=== PATIENT | female | born 1950 | race Caucasian/White ===

== ENCOUNTER 2024-09-27 11:49 | Observation (INO) ==
--- NOTE | 2024-08-30 13:40 | PAT Medication Instructions ---
Medication Instructions Date of Service August 30, 2024 Home Medications albuterol sulfate 90 mcg/actuation aerosol inhaler 2 puff inhalation Q4H PRN Shortness Of Breath Or Wheezing atorvastatin 20 mg tablet 20 mg PO QPM fluticasone propionate 50 mcg/actuation nasal spray,suspension (Flonase Allergy Relief) 2 spray intranasal QAM PRN Nasal Congestion levothyroxine 25 mcg tablet 25 mcg PO QAM losartan 100 mg tablet 100 mg PO QAM cyanocobalamin (vitamin B-12) 500 mcg tablet 500 mcg PO QPM fexofenadine 180 mg tablet 180 mg PO QPM pantoprazole 40 mg tablet,delayed release 40 mg PO QAM buspirone 5 mg tablet 5 mg PO QAM duloxetine 30 mg capsule,delayed release 30 mg PO QAM hydroxyzine HCl 10 mg tablet 10 mg PO HS PRN Sleep MEDICATION INSTRUCTIONS: Continue as directed fluticasone propionate 50 mcg/actuation nasal spray,suspension (Flonase Allergy Relief) 2 spray intranasal QAM PRN Nasal Congestion albuterol sulfate 90 mcg/actuation aerosol inhaler 2 puff inhalation Q4H PRN Shortness Of Breath Or Wheezing (use if needed; BRING TO HOSPITAL) DO NOT take the morning of surgery losartan 100 mg tablet 100 mg PO QAM Take morning of surgery With a small sip of water, OTHERWISE NOTHING TO EAT OR DRINK AFTER MIDNIGHT: pantoprazole 40 mg tablet,delayed release 40 mg PO QAM levothyroxine 25 mcg tablet 25 mcg PO QAM buspirone 5 mg tablet 5 mg PO QAM duloxetine 30 mg capsule,delayed release 30 mg PO QAM Take evening before surgery hydroxyzine HCl 10 mg tablet 10 mg PO HS PRN Sleep fexofenadine 180 mg tablet 180 mg PO QPM atorvastatin 20 mg tablet 20 mg PO QPM cyanocobalamin (vitamin B-12) 500 mcg tablet 500 mcg PO QPM Other Notes If you have any questions please call us at [phone] or [phone] or [phone] or [phone]
--- NOTE | 2024-09-06 13:39 | Anesthesiology Consultation ---
Date of Service September 06, 2024 Assessment & Plan (1) Encounter for pre-operative examination: Chart Review Chart Review: Acceptable Risk for Surgery (pending surgeon ordered cardio and PCP clearances ) and Patient seen in Pre Admission Testing - Awaiting PCP clearance 09/22/24 ([facility]) - Awaiting cardio appt 09/15/24 ([facility]) Pt currently scheduled as 23 hours observation. If surgeon decides to change patient to Same Day Joint, patient would be acceptable risk for TKA, pending patient is motivated, has good support and surgeon's office completes Same Day Joint Program preop requirements. Per PAT appt on 09/06/24, no recent illness/disease exposures, illness related symptoms, or recent illness/disease positive tests. Will leave to surgeon's discretion if preop Covid testing needed Teaching & Discussion Pre-Anesthesia Teaching/Discussion Notes: Instructed NPO after midnight before surgery,except medications with 15 cc of water. Medication instructions provided according to the PAT guidelines. History Surgery Operation Date: 09/27/24 12:35 Proposed Procedures p Left Total Knee Arthroplasty - Ricky Berg MD Height/Weight Height: 5 ft Weight: 105.9 kg Allergies Allergy/AdvReac Type Severity Reaction Status Date / Time clarithromycin Allergy Unknown severe Verified 08/23/24 10:22 headache, rash, and toothache doxycycline Allergy Unknown rash Verified 08/23/24 10:22 Penicillins Allergy Unknown rash Verified 08/23/24 10:22 Sulfa (Sulfonamide Allergy Unknown RASH Verified 08/23/24 10:22 Antibiotics) zinc oxide Allergy Unknown rash Verified 08/23/24 10:22 WOJCIECH Inhibitors AdvReac Unknown headache Verified 08/23/24 10:22 Medications Home Medications Medication Instructions Recorded Confirmed Last Taken albuterol sulfate 90 mcg/actuation 2 puff inhalation Q4H PRN 04/21/18 08/23/24 U nknown aerosol inhaler Shortness Of Breath Or Wheezing atorvastatin 20 mg tablet 20 mg PO QPM 04/21/18 08/23/24 09/08/22 fluticasone propionate 50 2 spray intranasal QAM PRN Nasal 04/21/18 08/23/24 09/08/22 mcg/actuation nasal Congestion spray,suspension (Flonase Allergy Relief) levothyroxine 25 mcg tablet 25 mcg PO QAM 04/21/18 08/23/24 09/09/22 03:15 losartan 100 mg tablet 100 mg PO QAM 04/21/18 08/23/24 09/08/22 cyanocobalamin (vitamin B-12) 500 500 mcg PO QPM 09/03/22 08/23/24 09/08/22 mcg tablet fexofenadine 180 mg tablet 180 mg PO QPM 09/03/22 08/23/24 09/08/22 pantoprazole 40 mg tablet,delayed 40 mg PO QAM 09/03/22 08/23/24 09/09/22 03:15 release buspirone 5 mg tablet 5 mg PO QAM 08/23/24 08/23/24 Unknown duloxetine 30 mg capsule,delayed 30 mg PO QAM 08/23/24 08/23/24 Unknown release hydroxyzine HCl 10 mg tablet 10 mg PO HS PRN Sleep 08/23/24 08/23/24 Unknown Past Medical History Medical History Degenerative disc disease Depression with anxiety History of asthma rare res inh use well controlled and stable History of COVID-2019 > not hospitalized - symptoms fully resolved History of esophageal reflux well controlled and stable History of TMJ disorder clicks, and currently getting sore and causing some issues to open her mouth with pain at times --- has not locked. Hx SBO around 2020- resolved - no surgical intervention, hospitalized at [facility] Hyperlipidemia Hypertension Hypothyroidism Irregular heartbeat Occasional - patient feels possibly due to stress- had a holter monitor for 14 days in July 2024 -- unsure of findings. Osteoarthritis Sleep apnea in adult no device needed per patient Exercise / Class Metabolic Activity II 4-5 Yardwork/Stairs/Walk up hill (one flight of stairs - no chest pain or SOB ) Past Family History Family History Father Cancer Mother Breast cancer Other No family history of adverse response to anesthesia Past Surgical History Surgical History History of arthroplasty of right knee History of cataract surgery bilat History of colonoscopy History of repair of rotator cuff right History of tonsillectomy S/P appendectomy with hysterectomy surgery S/P NAHUN-BSO Past Anesthesia History No Hx of Anesthesia Complications and No Family Hx of Anesthesia Complications History of PONV No Hx of PONV and No Hx of Motion Sickness Social History Smoking Status: Never smoker Do You Dip or Chew Tobacco: No Hx Alcohol Use: Yes alcohol intake frequency: holidays/special occasions only Hx Substance Use: No substance use type: does not use Review of Systems - Fluttering/palpitation sensation- occasional- following with cardio Patient denies recent chest pain, shortness of breath, dyspnea on exertion, cough, wheezing No hx of seizures, stroke, NH. No hx of blood clots or blood transfusions Physical Exam Vital Signs VITALS BP 124/84 (manual) P 80 TEMP 97.3 SP02 97% RESP 16 Constitutional no acute distress ENMT Mouth: no TMJ clicking Thyromental Distance: < 3.5 Finger Breadths (3.0) Mallampati Class: III Missing molar Caps to side teeth Neck neck extension not limited Respiratory normal respiratory effort; no respiratory distress Auscultation: lungs clear to auscultation bilaterally; no wheezes Cardiovascular Rate/Rhythm: regular rate and regular rhythm Heart Sounds: no murmur Vessels: no carotid bruit Musculoskeletal Spine: + pain with cervical ROM (mild) Extremities: extremities normal to inspection Psychiatric Orientation: alert Lab Results Anesthesia Preop Results Results Anesthesia Widget: WBC 6.88 K/ul (4.8-10.8) 09/06/24 Hgb 13.6 g/dl (12.0-16.0) 09/06/24 Hct 40.4 % (37.0-47.0) 09/06/24 Plt 248 K/uL (130-400) 09/06/24 Na 137 mmol/L (136-145) 09/06/24 K 3.9 mmol/L (3.5-5.1) 09/06/24 Cl 105 mmol/L (98-107) 09/06/24 CO2 26 mmol/L (21-32) 09/06/24 BUN 12 mg/dl (6-23) 09/06/24 Creat 0.67 mg/dl (0.6-1.2) 09/06/24 Glucose Level 112 mg/dl (70-99(Fasting)) H 09/06/24 PT 11.0 Seconds (9.0-12.0) 09/06/24 PTT 24 Seconds (21-31) 09/06/24 INR 1.0 (0.9-1.1) 09/06/24 Urine Color Yellow 09/06/24 Urine Appearance Cloudy (Clear) A 09/06/24 Urine pH 6.5 (4.5-7.5) 09/06/24 Urine Specific [place] 1.022 (1.000-1.030) 09/06/24 Urine Protein Trace (Negative) H 09/06/24 Urine Glucose (UA) Negative (Negative) 09/06/24 Urine Ketones Negative (Negative) 09/06/24 Urine Blood 1+ (Negative) H 09/06/24 Urine Nitrite Negative (Negative) 09/06/24 Urine Bilirubin Negative (Negative) 09/06/24 Urine Urobilinogen Negative (Negative) 09/06/24 Urine Leukocyte Esterase 3+ (Negative) H 09/06/24 Urine WBC (Auto) >50 /hpf (0-5) H 09/06/24 Urine RBC (Auto) 3-5 /hpf (0-2) H 09/06/24 Urine Hyaline Casts (Auto) 0-2 /lpf (0-2) 09/06/24 Urine Epithelial Cells (Auto) 0-2 /hpf (0-2) 09/06/24 Urine Bacteria (Auto) 3+ (None Seen) H 09/06/24 Blood Type A Positive 09/06/24 Antibody Screen NEGATIVE 09/06/24 Testing Laboratory Results 09/06/24= URINE CULTURE: Klebsiella pneumoniae >100,000 CFU/ml ( Preliminary reading- surgeon's office informed of abnormal UA and prelim urine culture results- will leave to surgeon's discretion on how to proceed) Electrocardiogram Date: 09/06/24 SR with premature supraventricular complexes and with occ PVCs at 74bpm Otherwise normal EKG per cardio Chest X-Ray Date: 12/09/23 Findings: + NAD Echocardiogram Date: 07/20/24 EF: 55-59% LV Function: normal RWMA: + none Other Findings: + diastolic dysfunction (Grade I); no LVH Valvular Disease: + no significant valvular disease No evidence of pulm HTN Other Testing Event monitor 06/19/24-07/03/24= Minimum HR 49bpm, maximum HR 167bpm, average HR 78bpm. Predominant rhythm sinus rhythm. Slight P waves morphology changes noted. 58 SVT runs occurred, fastest interval lasting beats with max rate of 167bpm, longest lasting 37.4 with an average rate of 116bpm. Isolated SVEs rare, SVE couplets were rare, SVE triplets were rare. Isolated VEs were occasional, VE couplets were occasional and VE triplets were rare. Ventricular bigeminy and trigeminy were present
--- NOTE | 2024-09-25 20:36 | History & Physical Report ---
Date of Service September 25, 2024 Assessment & Plan (1) Bilateral primary osteoarthritis of knee: Plan: History of bilateral knee osteoarthritis with total knee replacement right knee in the past 2016. Patient now with progressive osteoarthritis in the left knee and wants proceed with left total knee replacement. History of Present Illness Chief Complaint: Chronic left knee pain Primary Care Provider: Janes Martínez MD 74-year-old female with chronic left knee pain failed conservative management. Patient has end-stage osteoarthritis left knee and wants proceed with knee replacement. History of right knee replacement 2016. Patient denies headaches, sweats, fevers, chills, double vision, blurred vision, , sore throat, dysphagia, chest pain, sob, wheezing, n/v/d/c, fatigue, urinary symptoms. ROS positive for chronic cough, depression with anxiety, extremity numbness, shortness of breath with activity walking up a hill or running short distance, TMJ, low back pain, acid reflux hiatal hernia. Allergies Allergy/AdvReac Type Severity Reaction Status Date / Time clarithromycin Allergy Unknown severe Verified 08/23/24 10:22 headache, rash, and toothache doxycycline Allergy Unknown rash Verified 08/23/24 10:22 Penicillins Allergy Unknown rash Verified 08/23/24 10:22 Sulfa (Sulfonamide Allergy Unknown RASH Verified 08/23/24 10:22 Antibiotics) zinc oxide Allergy Unknown rash Verified 08/23/24 10:22 WOJCIECH Inhibitors AdvReac Unknown headache Verified 08/23/24 10:22 Home Medications Medication Instructions Recorded Confirmed Type albuterol sulfate 90 mcg/actuation 2 puff inhalation Q4H PRN 04/21/18 08/23/24 History aerosol inhaler Shortness Of Breath Or Wheezing atorvastatin 20 mg tablet 20 mg PO QPM 04/21/18 08/23/24 History fluticasone propionate 50 2 spray intranasal QAM PRN Nasal 04/21/18 08/23/24 History mcg/actuation nasal Congestion spray,suspension (Flonase Allergy Relief) levothyroxine 25 mcg tablet 25 mcg PO QAM 04/21/18 08/23/24 History losartan 100 mg tablet 100 mg PO QAM 04/21/18 08/23/24 History cyanocobalamin (vitamin B-12) 500 500 mcg PO QPM 09/03/22 08/23/24 History mcg tablet fexofenadine 180 mg tablet 180 mg PO QPM 09/03/22 08/23/24 History pantoprazole 40 mg tablet,delayed 40 mg PO QAM 09/03/22 08/23/24 History release buspirone 5 mg tablet 5 mg PO QAM 08/23/24 08/23/24 History duloxetine 30 mg capsule,delayed 30 mg PO QAM 08/23/24 08/23/24 History release hydroxyzine HCl 10 mg tablet 10 mg PO HS PRN Sleep 08/23/24 08/23/24 History Past Med/Surg History Problem List (Updated 09/25/24 @ 20:36 by Ricky Berg MD) Bilateral primary osteoarthritis of knee Encounter for pre-operative examination Diarrhea GERD (gastroesophageal reflux disease) (Chronic) History of colonoscopy with polypectomy (Chronic) 06/2017 removed of adenomatous and hyperplastic polyps, repeat 5 years History of appendectomy (Chronic) Removed with NAHUN BSO Vitamin D deficiency (Chronic) History of knee replacement procedure of right knee (Chronic) 2014 Dr. Palacio History of total abdominal hysterectomy and bilateral salpingo-oophorectomy (Chronic) HTN (hypertension) (Chronic) HLD (hyperlipidemia) (Chronic) Depression with anxiety (Chronic) Hypothyroidism (Chronic) Arthritis of right knee Medical History Prediabetes Osteoarthritis Degenerative disc disease Irregular heartbeat Occasional - patient feels possibly due to stress- had a holter monitor for 14 days in July 2024 -- unsure of findings. Hypothyroidism Depression with anxiety Hx SBO around 2020- resolved - no surgical intervention, hospitalized at [facility] Hyperlipidemia Hypertension History of COVID-2019 > not hospitalized - symptoms fully resolved History of asthma rare res inh use well controlled and stable Sleep apnea in adult no device needed per patient History of esophageal reflux well controlled and stable History of TMJ disorder clicks, and currently getting sore and causing some issues to open her mouth with pain at times --- has not locked. Surgical History S/P NAHUN-BSO S/P appendectomy with hysterectomy surgery History of colonoscopy History of arthroplasty of right knee History of cataract surgery bilat History of repair of rotator cuff right History of tonsillectomy Family History Father Cancer Mother Breast cancer Other No family history of adverse response to anesthesia Social History Smoking Status: Never smoker Second Hand Exposure: No; Do You Dip or Chew Tobacco: No; Tobacco Cessation Education Requested by Patient: No Hx Alcohol Use: Yes Hx Substance Use: No Preferred Language: Syrian Communication Ability: Effective Wellness Assistant Required: No Beliefs That Will Affect Care: None marital status: Current Living Situation: Spouse Other Information That Helps Us Care for You: No Feels Safe at Home: Yes Safety Concerns: Feels Safe At This Time Assistive Devices: Glasses Review of Systems All systems reviewed & are unremarkable except as noted in HPI & below Physical Exam Constitutional: WD/WN, vitals as above Respiratory: normal respiratory effort; no respiratory distress Cardiovascular: Rate/Rhythm: regular rate and regular rhythm Musculoskeletal: Left knee pain with a varus knee mild effusion moderate swelling 0 through 125 degrees range of motion distal lower extremity neurovascular exam normal. Skin: no rashes, warm and dry Neurologic: normal touch/pain/proprioception Psychiatric: A+Ox3, euthymic affect Results & Data Diagnostic Findings Radiographs demonstrate a right total knee replacement well-fixed aligned in some valgus position on the tibia. The left knee has a varus knee with tricompartmental osteoarthritis and [id number] medial compartment.
[~2024-09-27 11:49] MED LIST: ROPIVACAINE 0.5% 5 MG/ML 30 ML VIAL ONE
--- NOTE | 2024-09-27 12:08 | History & Physical Bridge Note ---
Date of Service September 27, 2024 History & Physical Bridge Note I have examined the patient, reviewed the History & Physical and in the interval since the performance of the History & Physical I have noted the following changes of clinical significance: no changes noted
[2024-09-27] MEDS: LR 500ML BOLUS, THEN 15ML/HR IV SCH (12:30)
[2024-09-27] MEDS: ACETAMINOPHEN 500 MG TAB PO SCH ×2 (12:41→18:34)
[2024-09-27] MEDS: GABAPENTIN 300 MG CAP PO SCH (12:42)
[2024-09-27] MEDS: METOCLOPRAMIDE HCL 10 MG TABLET PO SCH (12:42)
[2024-09-27] MEDS: FAMOTIDINE 20 MG TAB PO SCH (12:42)
[2024-09-27] MEDS: dexAMETHasone**PF** 10 MG/ML VIAL IV SCH (12:42)
[2024-09-27] MEDS: LR 60ML/HR IV SCH (12:42)
[2024-09-27] MEDS: CeleBREX 200 MG CAP PO SCH (12:42)
[2024-09-27] MEDS ORDERED: fentaNYL citrate PF 100 MCG/2 ML VIAL ONE (13:09)
[2024-09-27] MEDS ORDERED: MIDAZOLAM HCL 1 MG/ML 2ML VIAL ONE ×2 (13:09→14:01)
[2024-09-27] MEDS ORDERED: ONDANSETRON INJ 2 MG/ML 2 ML VIAL IV PRN ×2 (13:11→17:52)
[2024-09-27] MEDS ORDERED: HYDROmorphone INJ 1 MG/ML SYRINGE IV PRN (13:11)
[2024-09-27] MEDS ORDERED: ATROPINE SULFATE 0.1 MG/ML 10ML SYR IV PRN (13:11)
[2024-09-27] MEDS ORDERED: ePHEDrine sulfate 50 MG/ML AMP IV PRN (13:11)
[2024-09-27] MEDS ORDERED: KETOROLAC 30 MG/ML VIAL IV PRN (13:11)
[2024-09-27] MEDS: TRANEXAMIC ACID 1,000 MG **IV Pre-op IV SCH (13:12)
[2024-09-27] MEDS ORDERED: PROPOFOL IV EMULSION 10 MG/ML 20 ML VIAL IV ONE ×3 (13:40→16:24)
[2024-09-27] MEDS: ceFAZolin 3000MG 3,000 MG/72.5 ML BAG IV SCH (13:55)
[2024-09-27] MEDS: ORTHO JOINT ANESTHETIC ONE (14:31)
[2024-09-27] MEDS ORDERED: LIDOCAINE 2% 2 ML VIAL/AMP(20MG/ML) INFIL ONE (14:59)
[2024-09-27] MEDS: ROPIV 0.5% 246mg, Ketorolac 30mg, EPINEPHrine 0.5mg in NSS INFIL SCH (15:05)
[2024-09-27] MEDS: TRANEXAMIC ACID 1,000 MG **IV Intra-op IV SCH (16:05)
[2024-09-27] MEDS ORDERED: ONDANSETRON INJ 2 MG/ML 2 ML VIAL ONE (16:29)
--- NOTE | 2024-09-27 16:53 | Operative Report ---
Post Operative Report Pre & Post Diagnosis Preoperative diagnosis: Left knee end-stage osteoarthritis, morbid obesity BMI 44.9 Postoperative diagnosis: Left knee end-stage osteoarthritis, morbid obesity BMI 44.9 Operation Date: 09/27/24 15:10 <No data on this case meets the specified criteria> I identified the patient and participated in the time-out.: Yes Procedure Left total knee arthroplasty, juana and Acticoat superficial wound VAC application, increased difficulty morbid obesity BMI 44.9 Operation Date: 09/27/24 15:10 <No data on this case meets the specified criteria> Surgeon Ricky Berg MD Tennis Desk Team Member Anand DUQUE Estimated Blood Loss 10 Findings Consistent with Post-Op Diagnosis Specimens Bone cuts Drains 2 Hemovac Anesthesia Type MAC Spinal Regional Complications none Disposition Disposition: Recovery Room Indications 74-year-old female with progressive osteoarthritis left knee failed conservative management. Radiographically she has patellofemoral and medial compartment osteoarthritis with a varus knee [id number] medial compartment. She has a right total knee arthroplasty which was performed 2014. Description of Procedure Patient taken to the operating room the size under spinal MAC regional block anesthesia. Patient was placed supine on the operating table. A pneumatic tourniquet was placed about the obese left upper thigh. The left lower ex tremity was prepped and draped in sterile fashion. Knee exam demonstrated 10 through 115 degrees range of motion no pseudolaxity medially. The leg was elevated exsanguinated with an Esmarch bandage and pneumatic tourniquet was raised to 350 millimeters of mercury. Skin incised sharply in longitudinal fashion. Subcutaneous flaps elevated. Incision was made through the medial retinaculum extending up in the mid third of the quadriceps tendon and down to the medial tibial tubercle. Intra-articular findings demonstrated primarily medial compartment and patellofemoral osteoarthritis with grade 4 medial compartment osteoarthritis [id number].. The Hibernater triathlon total knee arthroplasty system was used. To expose the knee the infrapatellar fat pad was resected. The meniscal remnants and cruciate ligaments were resected. The anterior fat pad over the femur in the area of the location of the anterior flange of the femoral component was resected. The lateral synovial bands were released. The femur was exposed. The exposure was tight with retraction of the patella with a slightly low-lying patella. An intramedullary drill hole was made into the canal. A guide annabelle was placed. Distal femoral cutting guide was adjusted to resect 5 degree valgus cut with 10 millimeters distal femur resected. The knee was extended and a subperiosteal peel lateral release was performed around the patella. Patella width was measured and width was reproduced using a freehand cut technique and a 29 mm asymmetrical patella component. The 3 drill holes were made and the trial fit satisfactorily. Attention was taken back to the femur which was exposed with retractors and the femoral sizing guide was pinned in position. The drill holes were placed in 3 of external rotation to match the epicondylar axis. The femur size was between L3 and L4 and I felt the 3 had the best medial lateral that so we the AP shifted 1.5 mm to prevent notching anteriorly and used a 3 size 4-in-1 cutting block which was placed and then the anterior posterior and chamfer cuts are made. The tibia was then subluxed. The external tibial cutting guide was adjusted to make a perpendicular cut to the long axis of the tibia below the most deficient bone loss side. Cut was adjusted for slope. A lamina millwright apprentice was used and the flexion extension gaps were balanced. Medial posterior medial releases and 1 tight band of the anterior medial MCL was pie crusted in order to balance the ligaments. All posterior osteophytes removed. All meniscal remnants were resected. The tibia exposed and the trial tibial component size 3 was externally rotated in line with the tibial tubercle and pinned in position. The punch for stem was used. The notch cutting device was centered appropriately and the femoral notch cut was made. The femoral trial was inserted. Trial tibial inserts were placed and size 13 posterior stabilized gave balanced ligaments through flexion and extension. Patella tracking was assessed. The patella tracked centrally. The trial components were then removed and the orthomix anesthetic cocktail was injected per protocol. The knee was then copiously irrigated with pulsatile lavage saline solution. Final components were then cemented with Refobacin cement. After the cement cured a Betadine soak was performed for 3 minutes and then knee was irrigated out. Final components were Emilio triathlon size 3 left posterior stabilized femoral component with a 3 universal tibial baseplate and 3 x 13 mm X.3 polyethylene tibial bearing insert and a X.3 polyethylene asymmetrical 29 x 9 mm all polyethylene patella component.. After the cement cured further pulsatile lavage irrigation was then performed with Xperience and 2 Hemovac drains were brought out laterally. The quadriceps tendon and medial retinaculum were closed with #2 FiberWire [id number] sutures along the medial retinaculum medial side of the patella and distal quadriceps tendon and an additional figure-of- eight suture at the apex of the quadriceps tendon split proximally and an additional [id number] suture at the level of the tibial polyethylene in the patella tendon. a 0 running locking STRATAFIX suture was placed starting at the proximal split in the quadriceps tendon extending down to the inferior pole the patella and then below that level [id number] #1 Vicryl sutures were utilized to repair the medial retinaculum to the patella tendon. The knee was taken through full range of motion and the repair was secure. Knee range of motion was 0 through 125 degrees. The subcutaneous tissues were closed with 2-0 Vicryl sutures. Skin was closed with surgical charan. Juana and Acticoat superficial wound VAC was applied. The patient tolerated the procedure well. There was increased level difficulty due to her obesity and this added 30 minutes to the surgical procedure time. Anand DUQUE was my physician assistant director of nursing who participated as produce assistant and was involved in all aspects of the procedure including patient positioning prepping and draping,leg positioning ,soft tissue retraction and instrument management and participated in the closing and placement of superficial wound VAC and will participate in postoperative care of the patient. The patient tolerated the procedure well. I attest to the content of the Intraoperative Record and any orders documented therein. Any exceptions are noted below.
--- NOTE | 2024-09-27 17:12 | Anesthesiology Progress Note ---
Date of Service September 27, 2024 Anesthesia Post Procedure Vital Signs Vital Signs: Temp Pulse Resp BP BP Pulse Ox O2 Del Method 09/27/24 17:05 81 17 129/67 94 Room Air 09/27/24 16:55 79 18 123/63 94 Room Air 09/27/24 16:45 36.6 C 83 18 134/58 L 95 Room Air 09/27/24 12:20 37 C 82 20 160/88 H 97 Room Air Pain Intensity Left Knee: Pain Intensity: 0 Transfer of Care Handoff Completed per policy Notes Mental Status: alert / awake / arousable Patient Amnestic to Procedure: Yes Nausea / Vomiting: adequately controlled Pain: adequately controlled Airway Patency, RR, SpO2: stable & adequate BP & HR: stable & adequate Hydration State: stable & adequate Neuraxial Anesthesia: was administered and sensory block is resolving Anesthetic Complications: no major complications apparent and Pt Satisfied with anesthetic care
--- NOTE | 2024-09-27 17:12 | XRay Report ---
Clinical History: Postoperative examination 2 views of the left knee are submitted for review. Findings: No fracture is seen. There is a left knee total arthroplasty in expected position. There is no definite sign of infection or loosening. No other osseous abnormality is identified. There are surgical skin charan anteriorly. Surgical drains are present Impression: Left knee replacement Electronically signed by Alvaro Ambrose 09-27-2024 5:12 PM
[2024-09-27] MEDS ORDERED: METOCLOPRAMIDE HCL INJ 5 MG/ML 2 ML VIAL IV PRN (17:52)
[2024-09-27] MEDS ORDERED: MAGNESIUM HYDROXIDE SUSP 30 ML UDC PO PRN (17:52)
[2024-09-27] MEDS ORDERED: ALUMINUM/MAGNESIUM SUSP 30 ML UDC PO PRN (17:52)
[2024-09-27] MEDS ORDERED: HYDROmorphone INJ 0.5 MG/0.5 ML SYR IV PRN (17:52)
[2024-09-27] MEDS ORDERED: hydrOXYzine HCl 10 MG TAB PO PRN (17:52)
[2024-09-27] MEDS ORDERED: diphenhydrAMINE Capsule 25 MG CAP PO PRN (17:52)
[2024-09-27] MEDS ORDERED: bisacodyL 10 MG SUPP PR PRN (17:52)
[2024-09-27] MEDS ORDERED: ALBUTEROL HFA 8 GM INHALER INH PRN (17:52)
[2024-09-27] MEDS ORDERED: NALOXONE HCL 0.4 MG/1 ML VIAL/CARP IV PRN (17:52)
[2024-09-27] MEDS ORDERED: FLUTICASONE PROPIONATE NA SPR 16 GM BTL PRN (17:52)
[2024-09-27] MEDS: VANCOMYCIN HCL 1,500 MG in SODIUM CHLORIDE 0.9% 500 ML IV SCH (18:25)
--- OUTSIDE RECORDS SUMMARY | 2024-09-27 18:26 | External Medical Summary | Summary of Care ---
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 Role Phone Jose Puente MD Primary Care Provide r Reason for Visit * Reason Comments Consultation * Evaluate & Treat - Unlimited Visits (Within 30 days (routine)) - Pending Review Specialty Diagnoses / Procedures Referred By Contact Referred To Contact Cardiac Electrophysiology / Cardiology Diagnoses SVT (supraventricular tachycardia) (HCC) Jose Puente MD [address] [place] [address] [place] [address] Phone: tel:[phone] fax:[phone] Referral ID Status Reason Start Date Expiration Date Visits Requested Visits Authorized [id number] Pending Review Specialty Services Required 07/11/[phone] Encounter Details Date Type Department Care Team (Late st Contact Info) Description 09/15/2024 11:45 AM EST Office Visit Cardiology, [facility] [address] [facility] [place] [id number] Jessica Cordon, [address] [place] [address] [place] [id number] PAT (paroxysmal atrial tachycardia) (HCC)*; HTN, goal below 150/90; Hyperlipidemia with target LDL less than 70 Allergies Active Allergy Reactions Criticality Noted Date Comments Alejandro Inhibitors 12/21/2005 cough Clarithromycin 07/12/2000 Clarithromycin 02/08/2008 Headache,facial pain Doxycycline Hyclate 10/02/2009 hughes Penicillins 07/12/2000 Hives Sulfa Antibiotics 07/12/2000 rash Zinc Oxide 07/12/2000 documented as of this encounter (statuses as of 09/15/2024) Medications fexofenadine (NATAN) 60 MG Tablet Take 1 Tablet by mouth in the morning. Active B-12 1000 MCG Oral Capsule Take 1 Capsule by mouth in the morning. Active Fluticasone Propionate 50 MCG/ACT Nasal Suspension (Flonase)Indicatio ns:Other allergic rhinitis Administer 2 Sprays into each nostril in the morning. 48 g 1 3 Active Albuterol Sulfate HFA 108 (90 Base) MCG/ACT Inhalation Aerosol SolutionIndication s:Exacerbation of asthma, unspecified asthma severity, unspecified whether persistent Inhale 2 Puffs by mouth every 4 hours as needed for Wheezing. 18 g 5 4 Active Multivitamin Adult Oral Tablet Take by mouth. 4 Active Losartan Potassium 100 MG Oral Tablet (Cozaar)Indication s:Secondary hypertension with goal blood pressure less than 140/90 TAKE 1 TABLET EVERY MORNING 90 Tablet 3 4 Active Pantoprazole Sodium 40 MG Oral Tablet Delayed Release (Protonix)Indicati ons:Gastroesophage al reflux disease with esophagitis TAKE ONE TABLET BY MOUTH EVERY MORNING 30 MINUTES BEFORE BREAKFAST, DO not CRUSH, split OR chew 90 Tablet 1 4 Active Atorvastatin Calcium 20 MG Oral Tablet (Lipitor) TAKE 1 TABLET ONCE DAILY 90 Tablet 1 4 Active hydrOXYzine HCl 10 MG Oral Tablet (Atarax)Indication s:Insomnia, unspecified type,Depression with anxiety Take 1 Tablet by mouth at bedtime as needed for Other (insomnia). 30 Tablet 2 4 Active busPIRone HCl 5 MG Oral Tablet (Buspar)Indication s:Depression with anxiety TAKE ONE TABLET BY MOUTH EVERY MORNING 90 Tablet 4 Active Levothyroxine Sodium 25 MCG Oral Tablet (Levoxyl)Indicatio ns:Idiopathic hypothyroidism TAKE 1 TABLET DAILY AT LEAST 30 MINUTES PRIOR TO BREAKFAST OR OTHER MEDICATIONS. 90 Tablet 1 5 Active DULoxetine HCl 30 MG Oral Capsule Delayed Release Particles (Cymbalta)Indicati ons:Arthralgia, unspecified joint,Depression with anxiety Take 1 Capsule by mouth in the morning. Do not cut, crush or chew. 90 Capsule 1 5 Active documented as of this encounter (statuses as of 09/15/2024) Active Problems Problem Noted Date Diagnosed Date BMI 40.0-44.9, adult 09/15/2023 History of 2019 novel coronavirus disease (COVID -19) 07/23/2020 Body mass index (BMI) of 45.0 to 49.9 in adult 0 10/17/2018 Overview: Per Obesity protocol #1 - - Gastroesophageal reflux disease with esophagitis 10/03/2018 B12 deficiency 09/20/2018 Overview (09/20/2018): 09/27 start PO Morbid obesity due to excess calories 01/06/2017 Well adult exam 05/29/2016 Overview (11/12/2021): Need DANYA eval. w/early dementia 2021. 06/10/17 [facility] COlonoscopy 2 polyps-tubular adenoma. Christianne 5y Summer 2015 fatigue started synthroid 03/2016 [facility] Depression with anxiety 03/06/2015 Dyslipidemia, goal LDL below 130 07/18/2012 Left knee DJD 01/01/2012 HTN, goal below 140/90 06/17/2009 Other allergic rhinitis 11/13/2003 Overview (06/01/2017): ICD-10 update of inactive term documented as of this encounter (statuses as of 09/15/2024) Resolved Problems Problem Noted Date Diagnosed Date Resolved Date Prediabetes 11/12/2021 09/23/2023 Body mass index (BMI) of 40. 0 to 44.9 in adult 09/08/2019 11/07/2020 Encounter for examination fo r normal comparison and control in clinical research program 12/05/2018 03/11/2020 Overview (11/25/2020): DO NOT DELETE [facility] DETECT Study: Project # [id number], [employer]vered[employer] Sewer: Akash Morris, PhD. SUMMARY: Goal: Establish test characteristics (sensitivity, specificity, PPV, NPV) of a circulating tumor DNA (ctDNA)-based test for cancer. Hypothesis: Circulating tumor DNA (ctDNA) and elevated protein biomarkers (together, the marker panel) can be detected in asymptomatic individuals with early cancer. Specific Aim 1: Determine the prevalence of a positive marker panel test in a prospective clinical cohort of 10,000 asymptomatic women ages 65 to 75 years. Specific Aim 2: Determine the sensitivity, specificity, positive predictive value (PPV) and negative predictive value (NPV) of a marker panel test to identify histologically proven cancers that develop within 5-years of the marker panel evaluation. CONTACTS: During normal business hours, contact study staff at ; after hours Overedge Sewer via the [facility] automatic furnace operator . Please contact study team before resolving/deleting from patients problem list. Study phone number: [phone]. Diagnosis changed due to Research Module. Go to Snapshot for study details. Encounter for examination fo r normal comparison and control in clinical research program 12/05/2018 04/09/2022 Overview (11/25/2020): DO NOT DELETE - [facility] Study: Project # [id number], Overedge Sewer: Kapil Holcomb, MS, MPH. SUMMARY: Goal: Establish test characteristics (sensitivity, specificity, PPV, NPV) of a circulating tumor DNA (ctDNA)-based test for cancer. - Hypothesis: Circulating tumor DNA (ctDNA) and elevated protein biomarkers (together, the marker panel) can be detected in asymptomatic individuals with early cancer. - Specific Aim 1: Determine the prevalence of a positive marker panel test in a prospective clinical cohort of 10,000 asymptomatic women ages 65 to 75 years. - Specific Aim 2: Determine the sensitivity, specificity, positive predictive value (PPV) and negative predictive value (NPV) of a marker panel test to identify histologically proven cancers that develop within 5-years of the marker panel evaluation. - CONTACTS: During normal business hours, contact study staff at ; after hours [employer]veredge Sewer via the [facility] automatic furnace operator . - Please contact study team before resolving/deleting from patients problem list. Study phone number: [phone]. Diagnosis changed due to Research Module. Go to Snapshot for study details. Body mass index (BMI) of 40. 0 to 44.9 in adult 05/16/2018 10/18/2018 Overview: Per Obesity protocol #1 - Idiopathic hypothyroidism 04/15/2018 Body mass index (BMI) of 45. 0 to 49.9 in adult 05/10/2017 05/23/2018 Overview: Per Obesity protocol #1 Malaise and fatigue 03/24/2016 02/02/20 17 Left foot pain 03/24/2016 11/30/2016 Preop examination 09/09/2015 03/24/2016 Chronic rhinitis 08/07/2015 03/24/2016 Cough 07/15/2015 03/24/2016 Sciatica 06/10/2015 03/24/2016 Leg cramping 05/08/2015 03/24/2016 Pain in left shoulder 05/08/20152015 Malaise and fatigue 04/01/2015 08/22/19 19 Panic attacks 03/06/2015 10/03/2018 Bronchitis, complicated 12/24/201403/10 Acute sinusitis 09/24/2014 04/01/2015 Wheeze 09/24/2014 03/06/2015 Tear meniscus knee 09/11/2014 5 Internal derangement of knee 07/21/2014 04/01/2015 Tick bite 04/03/2014 04/01/2015 Vitamin D deficiency 03/17/2012 019 Asthma, moderate persistent 09/22/2011 01/16/2014 Obesity, morbid (more than 1 00 lbs over ideal weight or BMI > 40) 11/05/2009 02/03/2011 Overview (10/28/2015): Per Obesity Taxonomy ICD-10 update of inactive term Dyslipidemia, goal to be determined 07/16/2009 02/03/2011 Overview (07/16/2009): Per Lipid Taxonomy. Dyslipidemia, goal LDL below 160 06/17/2009 07/16/2009 Overview (07/16/2009): Per Lipid Taxonomy. HTN, goal to be determined 03/13/2009 1 08/17/2008 FAMILY HX-BREAST MALIG 05/29/200610/03 Dyslipidemia, goal to be determined 07/18/2004 06/17/2009 Other chronic sinusitis 11/13/200301/07 CYSTITIS, interstitial 06/07/200201/16 Major depressive disorder 06/07/2002 Overview (06/01/2017): ICD-10 update of inactive term Esophageal reflux 06/07/2002 03/06/2015 FAM HX-DIABETES MELLITUS 06/07/2002 OBESITY, UNSPECIFIED 010 Overview (11/05/2009): Per Obesity Taxonomy documented as of this encounter (statuses as of 09/15/2024) Immunizations Name Administration Dates Next Due COVID-19 mRNA, LNP-s, No Pre serve, 2-Dose Series (Moderna) 10/19/2020,09/08/2020 COVID-19, MRNA-LNP, PF, 30 M CG/0.3 mL, 12 YRS AND ABOVE, IM (PFIZER-Comirnaty) 05/04/2024,06/08/2023 COVID-19, mRNA, LNP-s, PF, B ooster, 100mcg/0.5mg (Moderna) 11/05/2021,06/17/2021 H1N1 2009 Influenza, IM 09/02/2009 Pneumococcal Conjugate Vacc, 13 Valent (Prevnar) 06/20/2018 Pneumococcal Polysaccharide PPV23 (Pneumovax) 09/08/2019,03/17/2012 Season Influenza, Quad, PF, Adjuvanted, 65+ Yrs, IM (FLUAD) 06/08/2023,04/20/2020 Seasonal Influenza Vac., MDV , IM, 0.5 mL (Fluzone) 04/27/2014,05/04/2013,04/19/2012,05/16,06/03/2010,04/24/2009,06/14/2008 ,06/10/2006 Seasonal Influenza, High Dos e, Trivalent, PF, IM (Fluzone HD) 04/27/2024 Seasonal Influenza, PF, 6 M & above, IM , (FluLaval or Fluzone) 05/02/2018,05/18/2017 Seasonal Influenza, Quadriva lent Hd (Fluzone Hd) 04/14/2022,05/15/2021 Seasonal Influenza, Quadriva lent, No Preserve, IM 06/05/2016,05/08/2015 Seasonal Influenza, Trivalen t, Adjuvanted, 65+ YRS, PF, (Fluad) 05/08/2019 TDAP (age 10 and older)(Boostrix) 11/07/2020 TDAP, Age 7 and older, IM (Adacel) 06/17/2009 Varicella Zoster Vaccine (Adult) 10/03/2012 Zoster Vaccine Recombinant (Shingrix) 02/20/2020 ,09/08/2019 documented as of this encounter Social History Tobacco Use Types Packs/Day Years Used Date Smoking Tobacco: Never Smokeless Tobacco: Never Alcohol Use Standard Drinks/Week Comments Yes 0 (1 standard drink = 0.6 oz pur e alcohol) on occasion PHQ-2 Answer Date Recorded PHQ Adult Total Score 9 06/19/2024 Hunger Vital Sign Answer Date Recorded Worried About Running Out of Food in the Last Ye ar Never true 06/07/2019 Ran Out of Food in the Last Year Never true 06/07/2019 Comments No Sex and Gender Information Value Date Recorded Sex Assigned at Female 06/21/2019 9:52 AM EST Legal Sex Female 5:27 AM EST Gender Identity Female 06/21/2019 9:52 AM EST Sexual Orientation Straight 06/20/2023 7: 15 PM EST 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 Chief Complaint Patient presents with Consultation Pt referred to EP due to abnormal zio patch Referring Provider: Dr. Garcia Cardiac Problems: PAT brief on 06/2024 longest 30 seconds HTN HLD Morbid obesity HPI: Pt reports palpitations more when she is stressed She cares for her who has dementia Over the past month she maybe had an episode every 2 weeks with a duration of a minute or so; no associated symptoms. She typically sits down and calms herself down and then feels better She works at a food [employer] and takes care of the household choirs and her grand- children and great-grand children and siblings all live nearby She is thinking about getting her other TKR 09/27/2024 with [facility] but then during the work up she was found to have a tooth infection-and is due to see the dentist next week; and then had UTI and was treated for this PMH: Patient Active Problem List Diagnosis Other allergic rhinitis HTN, goal below 140/90 Left knee DJD Dyslipidemia, goal LDL below 130 Depression with anxiety Well adult exam Morbid obesity due to excess calories (HCC) B12 deficiency Gastroesophageal reflux disease with esophagitis Body mass index (BMI) of 45.0 to 49.9 in adult ([facility]) History of 2019 novel coronavirus disease (COVID-19) BMI 40.0-44.9, adult ([facility]) Current Outpatient Medications Medication Sig Dispense Refill fexofenadine (NATAN) 60 MG Tablet Take 1 Tablet by mouth in the morning. B-12 1000 MCG Oral Capsule Take 1 Capsule by mouth in the morning. Fluticasone Propionate 50 MCG/ACT Nasal Suspension (Flonase) Administer 2 Sprays into each nostril in the morning. 48 g 1 Albuterol Sulfate HFA 108 (90 Base) MCG/ACT Inhalation Aerosol Solution Inhale 2 Puffs by mouth every 4 hours as needed for Wheezing. 18 g 5 Multivitamin Adult Oral Tablet Take by mouth. Losartan Potassium 100 MG Oral Tablet (Cozaar) TAKE 1 TABLET EVERY MORNING 90 Tablet 3 Pantoprazole Sodium 40 MG Oral Tablet Delayed Release (Protonix) TAKE ONE TABLET BY MOUTH EVERY MORNING 30 MINUTES BEFORE BREAKFAST, DO not CRUSH, split OR chew 90 Tablet 1 Atorvastatin Calcium 20 MG Oral Tablet (Lipitor) TAKE 1 TABLET ONCE DAILY 90 Tablet 1 hydrOXYzine HCl 10 MG Oral Tablet (Atarax) Take 1 Tablet by mouth at bedtime as needed for Other (insomnia). 30 Tablet 2 busPIRone HCl 5 MG Oral Tablet (Buspar) TAKE ONE TABLET BY MOUTH EVERY MORNING 90 Tablet 0 Levothyroxine Sodium 25 MCG Oral Tablet (Levoxyl) TAKE 1 TABLET DAILY AT LEAST 30 MINUTES PRIOR TO BREAKFAST OR OTHER MEDICATIONS. 90 Tablet 1 DULoxetine HCl 30 MG Oral Capsule Delayed Release Particles (Cymbalta) Take 1 Capsule by mouth in the morning. Do not cut, crush or chew. 90 Capsule 1 No current facility-administered medications for this visit. Past Medical History: Diagnosis Date Allergic rhinitis due to other allergen Body mass index (BMI) of 45.0 to 49.9 in adult (HCC) 10/17/2018 Per Obesity protocol #1 - - Chronic sinusitis COVID-19 07/15/2020 Depressive disorder, not elsewhere classified Dyslipidemia, goal to be determined Esophageal reflux Family history of diabetes mellitus FAMILY HX-BREAST MALIG 05/29/2006 History of 2019 novel coronavirus disease (COVID-19) 07/23/2020 HTN, goal below 140/90 06/17/2009 Idiopathic hypothyroidism 04/15/2018 INTERSTITIAL CYSTITIS Obesity, BMI not known Other specified adjustment reaction Vitamin D deficiency 03/17/2012 Past Surgical History: Procedure Laterality Date ARTHROPLASTY KNEE TOTAL Right 09/2014 Dr Palacio COLONOSCOPY, DIAGNOSTIC (RECTUM) 12/21/2006 repeat 5 years COLONOSCOPY, DIAGNOSTIC (RECTUM) 04/18/2012 COLONOSCOPY FLEXIBLE PROXIMAL DIAGNOSTIC [facility] COLONOSCOPY, DIAGNOSTIC (RECTUM) 06/10/2017 adenomatous & hyperplastic polyps, repeat 5 yrs/[facility] COLONOSCOPY, DIAGNOSTIC (RECTUM) 09/09/2022 serrated adenomatous polyp, repeat 5 yrs / [facility] CYSTOSCOPY 2002 Dr Reilly MISCELLANEOUS ORDER appendectomy 1988 REMOVE CATARACT, INSERT LENS PROSTH Right 10/11/2018 right EXTRACAPSULAR CATARACT REMOVAL WITH INTRAOCULAR LENS performed by Mauro Conner MD at [facility] REMOVE CATARACT, INSERT LENS PROSTH Left 10/18/2018 left EXTRACAPSULAR CATARACT REMOVAL WITH INTRAOCULAR LENS performed by Mauro Conner MD at [facility] TOTAL ABD HYSTERECTOMY W/WO REMOVAL OF TUBE(S) 1988/heavy bleeding Review of patient's allergies indicates: Allergen Reactions Alejandro Inhibitors cough Biaxin [Clarithromycin] Clarithromycin Headache,facial pain Doxycycline Hyclate hughes Penicillins Hives Sulfa Antibiotics rash Zinc Oxide Family History Problem Relation Name Age of Onset Cancer Mother breast CA- Breast Cancer Mother Diabetes Grandmother (Paternal) Heart Disorder Father Diabetes Father Cancer Father unsure type- No Past Hx Sister No Past Hx Brother No Past Hx Son 3 (adopted-husbands) No Past Hx Daughter Rosario Breast Cancer Aunt (Maternal) Family Status Relation Status Mo (Not Specified) PGMA (Not Specified) Fa (Not Specified) Sis (Not Specified) Bro (Not Specified) Son (Not Specified) Marilyn (Not Specified) MAUNT (Not Specified) Social History Socioeconomic History Marital status: Spouse name: Not on file Number of children: Not on file Years of education: Not on file Highest education level: Not on file Occupational History 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 Tobacco Use Smoking status: Never Smokeless tobacco: Never Substance and Sexual Activity Alcohol use: Yes Comment: on occasion Drug use: No Sexual activity: Yes Partners: Male Comment: , noDV 3 sons (husbands) + daughter + 12 grandkids Other Topics Concern Not on file Social History Narrative Not on file Social Needs Financial Resource Strain: Not on file Food Insecurity: No Food Insecurity (06/07/2019) Hunger Vital Sign Worried About Running Out of Food in the Last Year: Never true Ran Out of Food in the Last Year: Never true Transportation Needs: Not on file Social Connections: Not on file Housing Stability: Not on file Review of Systems Constitutional: Negative for activity change, chills, fatigue, fever and unexpected weight change. HENT: Negative for postnasal drip, rhinorrhea and sinus pressure. Eyes: Negative for visual disturbance. Respiratory: Negative for shortness of breath. Cardiovascular: Positive for palpitations. Negative for chest pain and leg swelling. Gastrointestinal: Negative for blood in stool, constipation, diarrhea, nausea and vomiting. Genitourinary: Negative for dysuria and hematuria. Musculoskeletal: Negative for gait problem. Skin: Negative for rash. Neurological: Negative for dizziness, syncope and light-headedness. Objective BP 136/86 | Pulse 68 | Resp 14 | Wt 105.7 kg (233 lb) | BMI 45.50 kg/m | BSA 2.12 m Physical Exam Vitals and nursing note reviewed. Constitutional: General: She is awake. Appearance: Normal appearance. She is well-developed. HENT: Head: Normocephalic and atraumatic. Eyes: General: No scleral icterus. Extraocular Movements: Extraocular movements intact. Neck: Vascular: Normal carotid pulses. No carotid bruit or JVD. Cardiovascular: Rate and Rhythm: Normal rate and regular rhythm. Pulses: Carotid pulses are 2+ on the right side and 2+ on the left side. Radial pulses are 2+ on the right side and 2+ on the left side. Posterior tibial pulses are 2+ on the right side and 2+ on the left side. Heart sounds: S1 normal and S2 normal. No murmur heard. Pulmonary: Effort: Pulmonary effort is normal. Breath sounds: Normal breath sounds. No decreased breath sounds, wheezing, rhonchi or rales. Abdominal: Palpations: Abdomen is soft. Musculoskeletal: Cervical back: Neck supple. Right lower leg: No edema. Left lower leg: No edema. Skin: General: Skin is warm and dry. Neurological: General: No focal deficit present. Mental Status: She is alert and oriented to person, place, and time. Psychiatric: Attention and Perception: Attention normal. Mood and Affect: Mood normal. Speech: Speech normal. Behavior: Behavior normal. Behavior is cooperative. Thought Content: Thought content normal. Cognition and Memory: Cognition normal. Judgment: Judgment normal. RESULTS: ECGS: 09/06/2024: SR 75bpm APC 09/09/2015: SB 57bpm 10/05/2011: SR 60bpm 06/30/2010: SB 58bpm Zio Patch: 06/19/2024: REASON FOR STUDY: palpitation CONCLUSIONS: Duration: 13 days, 20 hours after artifact removed. Patient had a min HR of 49 bpm, max HR of 167 bpm, and avg HR of 78 bpm. Predominant underlying rhythm was Sinus Rhythm. Slight P wave morphology changes were noted. 58 Supraventricular Tachycardia runs occurred, the run with the fastest interval lasting 5 beats with a max rate of 167 bpm, the longest lasting 37.4 secs with an avg rate of 116 bpm. Isolated SVEs were rare (<1.0%), SVE Couplets were rare (<1.0%), and SVE Triplets were rare (<1.0%). Isolated VEs were occasional (3.9%, 75700), VE Couplets were occasional (1.1%, 8126), and VE Triplets were rare (<1.0%, 75). Ventricular Bigeminy and Trigeminy were present. Symptomatic events correlate with sensed ventricular ectopy and normal sinus rhythm. Echocardiogram: 07/20/2024: The left ventricular cavity size is normal. The LV wall thickness is normal. The left ventricular wall motion is normal. The qualitative LV ejection fraction is 55-59% (normal). The left ventricular diastolic function is mildly abnormal (grade I). There is no significant valvular disease There is no evidence of pulmonary hypertension. Lab Work Reviewed: Component Latest Ref Rng 09/15/2023 06/19/2024 BUN 6 - 20 mg/dL 13 12 CREATININE 0.5 - 1.0 mg/dL 0.6 0.6 EGFR >=60 mL/min >90 >90 SODIUM 135 - 146 mmol/L 138 139 POTASSIUM 3.5 - 5.1 mmol/L 4.1 4.4 CHLORIDE 98 - 107 mmol/L 102 101 CO2 22 - 32 mmol/L 24 24 ANION GAP 7 - 15 mmol/L 12 14 GLUCOSE 70 - 120 mg/dL 95 91 Albumin 3.8 - 5.0 g/dL 4.4 4.2 AST 10 - 35 U/L 21 25 Alkaline Phosphatase 35 - 130 U/L 95 105 Bilirubin, Total <=1.2 mg/dL 0.3 0.5 CALCIUM 8.4 - 10.2 mg/dL 9.0 9.3 Protein 6.0 - 8.3 g/dL 6.8 6.8 ALT 10 - 35 U/L 19 23 WBC 4.00 - 10.80 K/uL 7.81 Neutrophils % 40.0 - 75.0 % 56.1 Lymphocytes % 18.0 - 42.0 % 33.0 Monocytes % 1.0 - 11.0 % 7.9 Eosinophils % 0.0 - 6.0 % 1.7 Basophils % 0.0 - 2.0 % 1.0 Immature Granulocytes % 0.0 - 2.0 % 0.3 Absolute Neutrophils 1.80 - 7.70 K/uL 4.38 Absolute Lymphocytes 1.00 - 4.80 K/ul 2.58 Absolute Monocytes 0.00 - 1.10 K/uL 0.62 Absolute Eosinophils 0.00 - 0.70 K/uL 0.13 Absolute Basophils 0.00 - 0.20 K/uL 0.08 Absolute Immature Granulocytes 0.00 - 0.20 K/uL 0.02 WBC 4.00 - 10.80 K/uL 7.81 RBC 3.85 - 5.15 M/uL 4.51 HGB 12.0 - 15.3 g/dL 13.7 HCT 36.0 - 45.2 % 43.5 MCV 81.5 - 97.5 fL 96.5 MCH 27.0 - 34.0 pg 30.4 MCHC 32.0 - 36.0 g/dL 31.5 RDW 11.5 - 15.5 % 13.0 PLT 140 - 400 K/uL 262 MPV 6.6 - 11.1 fL 11.6 nRBCs <=0 /100 WBCs 0 Triglycerides <=174 mg/dL 86 Cholesterol <200 mg/dL 183 HDL Cholesterol >49 mg/dL 61 Non-HDL Cholesterol <=159 mg/dL 122 LDL Cholesterol <=129 mg/dL 105 Hemoglobin A1C 4.0 - 5.6 % 5.6 5.7 (H) Estimated Average Glucose <126 mg/dL 114 117 TSH 0.27 - 4.20 uIU/mL 2.75 1.86 ASSESSMENT: PAT brief on 06/2024 longest 30 seconds HTN HLD Morbid obesity Vitamin B12 deficiency GERD Depression 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 in upcoming few weeks PLAN: -I reviewed the cardiac conduction system and the EGMs from the zio patch with the patient and how it relates to her condition of PAT -Reassured the patient; I would not recommend any AVN blockers, anti-arrhythmic or procedures -Pt is at an acceptable moderate cardiovascular risk for her upcoming orthopedic procedure; no further cardiac testing necessary -Continue lipitor, losartan -EP f/u PRN Jessica Cordon DO documented in this encounter Nursing Notes * Anabel Espinosa LPN - 09/15/2024 11:47 AM EST Examination Room: 16 Name: Lashae Navas Date of : 1950 Reason for Visit: New pt Problems/Concerns: SVT on monitor - palpitations Interim Hosp(s): denies Chest Pain/SOB: denies MyChart Discussed: ALREADY ACTIVE Patient was instructed to not get up on the exam table until directed and assisted by their provider; patient is to remain seated in the chair/ wheelchair/ exam table for fall prevention and safety reasons. Patient is aware staff will assist stepping down off exam table with personnel. documented in this encounter Plan of Treatment Upcoming Encounters Date Type Department Care Team (Late st Contact Info) Description 09/22/2024 8:00 AM EST Office Visit [address] [place] [phone] Jose Puente MD [address] [place] [address] [place] [address] 12/18/2024 10:20 AM EDT Office [address] [address] Sharron Berumen CRNP [address] [place] [address] [place] [address] 06/19/2025 11:00 AM EST Office Visit [address] [place] [address] Jose Puente MD [address] [place] [address] [place] [address] 07/12/2025 10:00 AM EST Imaging Radiology [address] [place] [address] Scheduled Procedures Name Priority Associated Diagnoses Date/Ti me COLONOSCOPY FLEXIBLE PROXIMAL DIAGNOSTIC Recall History of colon polyps Scheduled Referrals Name Type Priority Associated Diagnoses Order Schedule ELECTROPHYSIOLOGY REFERRAL OP Referral Within 30 days (routine) SVT (supraventricular tachycardia) (HCC) Ordered: 07/11/2024 Health Maintenance Due Date Last Done Comments Cologuard 1997 Sigmoidoscopy 1997 Fecal Occult Blood Test 07/12/2001 07/12/2000 Adult Wellness Visit 06/21/2020 06/21/2019 DXA Scan 09/27/2024 09/27/2017 Depression Monitoring 06/19/2025 06/19/2024 TSH 06/19/2025 06/19/2024, 02/2024, 12/23/2022, Additional history exists Mammogram 07/05/2025 07/05/2024, 01/2023, 06/01/2022, Additional history exists GFR 09/06/2025 09/06/2024, 06/09, 09/15/2023, Additional history exists Albumin/Creatinine Ratio 12/23/2025 023, 04/10/2015, 04/04/2014 Colonoscopy 09/09/2027 09/09/2022, 09/2016, 04/18/2012, Additional history exists Colorectal Cancer Screening 09/09/2027 Lipid Panel 09/15/2028 09/15/2023, 12/07, 11/07/2021, Additional history exists DTap/Tdap Vaccines (3 - Td or Tdap) 11/07/2030 11/07/2020, 06/17/2009 Pneumococcal Vaccine: 50+ Years Completed 09/08/2019, 06/20/2018, 03/17/2012 Zoster Vaccines Completed 02/20/2020, 08/11, 10/03/2012 RETIRED - COLONOSCOPY-EVERY 5 YRS AGES 18-100 Discontinued 09/09/2022, 06/10/2017, 04/18/2012, Additional history exists Influenza Vaccine (FLU shot) Completed 04/27/2024, 06/08/2023, 04/14/2022, Additional history exists COVID-19 Vaccine Completed 05/04/2024, , 11/05/2021, Additional history exists HPV (Gardasil) Vaccine Aged Out No lo nger eligible based on patient's age to complete this topic Hepatitis B Vaccine Aged Out No longe r eligible based on patient's age to complete this topic MENINGOCOCCAL (MENACTRA/MENVEO) Aged Out No longer eligible based on patient's age to complete this topic documented as of this encounter Medical Devices Implanted Type Area Bullet Lubricating Machine Operator Device Identifier Shelf Expiration Date Model / Serial / Lot Lens Tecnis Toric 15.5d Zct30 - [id number] - [id number] Implanted:Qty: 1 on 10/11/2018 by Mauro Conner MD at OR [facility] Right: Eye [employer] 03/17/2022 [id number] / [id number] / Lens Tecnis Toric 13.5d Zct4 - [id number] - [id number] Implanted:Qty: 1 on 10/18/2018 by Mauro Conner MD at OR [facility] Left: Eye [employer] 12/15/2021 [id number] / [id number] / documented as of this encounter Visit Diagnoses Diagnosis PAT (paroxysmal atrial tachycardia) (HCC)- Primary Paroxysmal supraventricular tachycardia HTN, goal below 150/90 Hyperlipidemia with target LDL less than 70 Other and unspecified hyperlipidemia Screening mammogram for breast cancer documented in this encounter Care Teams Stud Dairy Cattle Farmer Relationship Specialty Start Date End Date Jose Puente MD [address] [place] [address] [place] [address] PCP - General Family Medicine 08/24/22 documented as of this encounter"
--- OUTSIDE RECORDS SUMMARY | 2024-09-27 18:26 | External Medical Summary ---
Author Name Unknown Address Unknown Organization K01:[facility] [address] [facility] [place] [address] Laboratory Report Ordering Provider Test Date Status IRAJ RUIZ 09/22/2024 08:22:05 Carmenza l Observation Date Value Abnormality Reference (Units ) Status Triglyceride 09/22/2024 08:22:05 126 <=174 ( mg/dL) Final Triglyceride Reference Range s (mg/dL):
<150 Acceptable
150-174 Borderline high
175-499 High
>=500 Very high Cholesterol 09/22/2024 08:22:05 182 <200 (mg /dL) Final Total Cholesterol Reference Ranges (mg/dL):
<200 Desirable
200-239 Borderline high
>=240 High HDL 09/22/2024 08:22:05 58 >49 (mg/dL ) Final HDL Cholesterol Reference Ra nges (mg/dL):
>=60 High (Desirable)
<50 Low (Undesirable) For Females
<40 Low (Undesirable) For Males NON-HDL CHOLESTEROL 09/22/2024 08:22:05 124 <=159 (mg/dL) Final Non-HDL Cholesterol Referenc e Range (mg/dL):
<100 Target level for high risk ASCVD patient
<130 Optimal for general population
130-159 Near optimal for general population
160-189 Borderline High
190-219 High
>=220 Very High LDL, (calculated) 09/22/2024 08:22:05 99 <= 129 (mg/dL) Final LDL Cholesterol Reference Ra nges (mg/dL):
<70 Target level for high risk ASCVD patient
<100 Optimal for general population
100-129 Near optimal for general population
130-159 Borderline high
160-189 High
>=190 Very high Performing Location [facility] [place] [address] [facility] [address]
--- OUTSIDE RECORDS SUMMARY | 2024-09-27 18:26 | External Medical Summary | Summary of Care ---
Author Name Unknown Organization [facility] Address [address] [facility] [address] Phone [phone] Care Team Providers Care Trackless Trolley Driver Name Role Phone Jose Puente MD Primary Care Provide r Encounter Details Date Type Department Care Team (Late st Contact Info) Description 09/08/2024 Orders Only Family Medicine [address] [place] [phone] Jose Puente MD [address] [place] [address] [place] [address] Allergies Active Allergy Reactions Criticality Noted Date Comments Alejandro Inhibitors 12/21/2005 cough Clarithromycin 07/12/2000 Clarithromycin 02/08/2008 Headache,facial pain Doxycycline Hyclate 10/02/2009 hughes Penicillins 07/12/2000 Hives Sulfa Antibiotics 07/12/2000 rash Zinc Oxide 07/12/2000 documented as of this encounter (statuses as of 09/08/2024) Medications fexofenadine (NATAN) 60 MG Tablet Take [...] EVERY MORNING 90 Tablet 3 4 Active DULoxetine HCl 30 MG Oral Capsule Delayed Release Particles (Cymbalta)Indicati ons:Arthralgia, unspecified joint,Depression with anxiety Take 1 Capsule by mouth in the morning. Do not cut, crush or chew. 90 Capsule 1 4 Active Pantoprazole Sodium 40 MG Oral [...] OTHER MEDICATIONS. 90 Tablet 1 5 Active documented as of this encounter (statuses as of 09/08/2024) Active Problems Problem Noted Date Diagnosed Date [...] Need DANYA eval. w/early dementia 2021. 06/10/17 [facility] COlonoscopy 2 polyps-tubular adenoma. Christianne 7y Summer 2015 fatigue [facility] Depression with anxiety 03/06/2015 Dyslipidemia, goal LDL below 130 07/18/2012 Left knee DJD 01/01/2012 HTN, goal below 140/90 06/17/2009 Other allergic rhinitis 11/13/2003 Overview (06/01/2017): ICD-10 update of inactive term documented as of this encounter (statuses as of 09/08/2024) Resolved Problems Problem Noted Date Diagnosed Date Resolved Date Prediabetes 11/12/2021 09/23/2023 Body mass index (BMI) of 40. 0 to 44.9 in adult 09/08/2019 11/07/2020 Encounter for examination fo r normal comparison and control in clinical research program 12/05/2018 03/11/2020 Overview (11/25/2020): DO NOT DELETE [facility] DETECT Study: Project # [id number], Driver Education Road Instructor: Akash Morris, PhD. SUMMARY: Goal: Establish test [...] contact study staff at ; after hours Driver Education Road Instructor via the [facility] dielectric testing machine operator . Please contact study team before resolving/deleting from patients problem list. Study phone number: [phone]. Diagnosis changed due to Research Module. Go to Snapshot for study details. Encounter for examination fo r normal comparison and control in clinical research program 12/05/2018 04/09/2022 Overview (11/25/2020): DO NOT DELETE - [facility] ALEX Study: Project # [id number], Driver Education Road Instructor: Kapil Holcomb, MS, MPH. SUMMARY: Goal: Establish [...] contact study staff at ; after hours Driver Education Road Instructor via the [facility] dielectric testing machine operator . - Please contact study team before resolving/deleting from patients problem list. Study phone number: [phone]. Diagnosis changed due to Research Module. 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 Not on file Not on file documented as of this encounter Plan of Treatment Upcoming Encounters Date Type Department Care Team (Late st Contact Info) Description 09/15/2024 11:45 AM EST Office Visit Cardiology, [facility] [address] [facility] [place] [address] Jessica Cordon, [address] [place] [address] 09/22/2024 8:00 AM EST Office Visit Family [address] [place] [phone] Jose Puente MD [address] [place] [address] [place] [address] 12/18/2024 10:20 AM EDT Office Visit Family [address] [place] [phone] Sharron Berumen CRNP [address] [place] [address] [place] [address] 06/19/2025 11:00 AM EST Office Visit Family Medicine [address] [place] [phone] Jose Puente MD [address] [place] [address] [place] [address] 07/12/2025 10:00 AM EST Imaging Radiology [address] [place] [address] Scheduled Procedures Name Priority Associated Diagnoses Date/Ti me COLONOSCOPY FLEXIBLE PROXIMAL DIAGNOSTIC Recall History of colon polyps Health Maintenance Due Date Last Done Comments [...] this encounter Medical Devices Implanted Type Area Color Coater Device Identifier Shelf Expiration Date Model / Serial / Lot Lens Tecnis Toric 15.5d Zct30 - [id number] - [id number] Implanted:Qty: 1 on 10/11/2018 by Mauro Conner MD at OR [facility] Right: Eye [employer] 03/17/2022 [id number] / [id number] / Lens Tecnis Toric 13.5d Zct4 - [id number] - [id number] Implanted:Qty: 1 on 10/18/2018 by Mauro Conner MD at OR [facility] Left: Eye [employer] 12/15/2021 [id number] / [id number] / documented as of this encounter Procedures Procedure Name Priority Date/Time Associated Diagnosis Comments CHEMISTRY-OUTSIDE Routine 09/06/2024 documented in this encounter Results * (ABNORMAL) CHEMISTRY-OUTSIDE (09/06/2024) Not all results display below - see scan for full detail OUTSIDE LAB (SEE SCANNED REPORT) Comment:SCAN INCLUDES - PRE- ADMISSION TESTING: CBCD, PT, INR, PTT, BMP, ALB, UA CREATININE 0.67 0.6 - 1.2 MG/DL OUTSIDE LAB (SEE SCANNED REPORT) EGFR 92.81 OUTSIDE LA B (SEE SCANNED REPORT) POTASSIUM 3.9 3.5 - 5.1 MMOL/L OUTSIDE LAB (SEE SCANNED REPORT) GLUCOSE 112(A) 70 - 99 MG/DL OUTSIDE LAB (SEE SCANNED REPORT) HOURS FASTING OUTSID E LAB (SEE SCANNED REPORT) TRIGLYCERIDES-OU TSIDE LAB OUTSIDE LAB (SEE SCANNED REPORT) CHOLESTEROL-OUTS [facility] LAB OUTSIDE LAB (SEE SCANNED REPORT) HDL-OUTSIDE LAB OUTS [facility] LAB (SEE SCANNED REPORT) CHOL/HDL RATIO-OUTSIDE LAB OUTSIDE LAB (SEE SCANNED REPORT) LDL (CALCULATED)-OUT SIDE LAB OUTSIDE LAB (SEE SCANNED REPORT) LDL (DIRECT MEASURE)-OUTSIDE LAB OUTSIDE LAB (SEE SCANNED REPORT) HEMOGLOBIN, E7R-ZJKMNON LAB OUTSIDE LAB (SEE SCANNED REPORT) PHOSPHORUS-OUTSI DE LAB OUTSIDE LAB (SEE SCANNED REPORT) PTH-OUTSIDE LAB OUTS MARCO LAB (SEE SCANNED REPORT) MICROALBUMIN RATIO-OUTSIDE LAB OUTSIDE LAB (SEE SCANNED REPORT) PROTEIN, UA-OUTSIDE LAB TRACE(H) NEGATIVE OUTSIDE LAB (SEE SCANNED REPORT) HGB 13.6 12.0 - 16.0 G/DL OUTSIDE LAB (SEE SCANNED REPORT) 09/06/2024 Ricky Berg MD LABORATORY Final Resu lt OUTSIDE LAB (SEE SCANNED REPORT) documented in this encounter Care Teams Trackless Trolley Driver Relationship Specialty Start Date End Date Jose Puente MD [address] [place] [address] [place] [address] PCP - General Family Medicine 08/24/22 documented as of this encounter
--- OUTSIDE RECORDS SUMMARY | 2024-09-27 18:26 | External Medical Summary | Summary of Care ---
Author Name Unknown Organization [facility] Address [address] [facility] [place] [address] Phone [phone] Care Team Providers Care Supervisor [employer] Name Role Phone Jose Puente MD Primary Care Provide r Reason for Visit * Reason Comments Outpatient Testing Encounter Details Date Type Department Care Team (Late st Contact Info) Description 09/22/2024 8:40 AM EST Laboratory Laboratory [address] [place] [phone] [place] [address] [employer] Other*[id number] Allergies Active Allergy Reactions Criticality Noted Date Comments Alejandro Inhibitors 12/21/2005 cough Clarithromycin 07/12/2000 Clarithromycin 02/08/2008 Headache,facial pain Doxycycline Hyclate 10/02/2009 hughes Penicillins 07/12/2000 Hives Sulfa Antibiotics 07/12/2000 rash Zinc Oxide 07/12/2000 documented as of this encounter (statuses as of 09/22/2024) Medications fexofenadine (NATAN) 60 MG Tablet Take [...] as of this encounter (statuses as of 09/22/2024) Active Problems Problem Noted Date Diagnosed Date History of 2019 novel coronavirus disease (COVID -19) 07/23/2020 Body mass index (BMI) of 45.0 to 49.9 in adult 0 10/17/2018 Overview: Per Obesity protocol #1 - - Gastroesophageal reflux disease with esophagitis 10/03/2018 B12 deficiency 09/20/2018 Overview (09/20/2018): 09/27 start PO Morbid obesity due to excess calories 01/06/2017 Well adult exam 05/29/2016 Overview (11/12/2021): Need DANYA eval. w/early dementia 2021. 06/10/17 [facility] COlonoscopy 2 polyps-tubular adenoma. Christianne 7y Summer 2015 fatigue [facility] Depression with anxiety 03/06/2015 Dyslipidemia, goal LDL below 130 07/18/2012 Left knee DJD 01/01/2012 HTN, goal below 140/90 06/17/2009 Other allergic rhinitis 11/13/2003 Overview (06/01/2017): ICD-10 update of inactive term documented as of this encounter (statuses as of 09/22/2024) Resolved Problems Problem Noted Date Diagnosed Date Resolved Date BMI 40.0-44.9, adult 09/15/2023 025 Prediabetes 11/12/2021 09/23/2023 Body mass index (BMI) of 40. 0 to 44.9 in adult 09/08/2019 11/07/2020 Encounter for examination fo r normal comparison and control in clinical research program 12/05/2018 03/11/2020 Overview (11/25/2020): DO NOT DELETE [facility] DETECT Study: Project # [id number], Sr. Manager: Akash Morris, PhD. SUMMARY: Goal: Establish test [...] contact study staff at ; after hours Sr. Manager via the [facility] photostat operator helper . Please contact study team before resolving/deleting from patients problem list. Study phone number: [phone]. Diagnosis changed due to Research Module. Go to Snapshot for study details. Encounter for examination fo r normal comparison and control in clinical research program 12/05/2018 04/09/2022 Overview (11/25/2020): DO NOT DELETE - [facility] DETECT Study: Project # [id number], Sr. Manager: Kapil Holcomb, MS, MPH. SUMMARY: Goal: Establish [...] contact study staff at ; after hours Sr. Manager via the [facility] photostat operator helper . - Please contact study team before resolving/deleting from patients problem list. Study phone number: [phone]. Diagnosis changed due to Research Module. 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 Not on file Not on file documented as of this encounter Plan of Treatment Upcoming Encounters Date Type Department Care Team (Late st Contact Info) Description 12/18/2024 10:20 AM EDT Office Visit Family Medicine [address] [place] [phone] Sharron Berumen CRNP [address] [place] [address] [place] [address] 06/19/2025 11:00 AM EST Office Visit Family Medicine [address] [place] [phone] Jose Puente MD [address] [place] [address] [place] [address] 07/12/2025 10:00 AM EST Imaging Radiology [address] [place] [address] Pending Results Name Type Priority Associated Diagnoses Date /Time MYCODE SUBSEQUENT ADULT Lab Routine MyCode Research Other*[id number] 09/22/2024 8:22 AM EST MYCODE SST1 Lab Routine MyCode Research Other*[id number] 09/22/2024 8:22 AM EST MYCODE SST2 Lab Routine MyCode Research Other*[id number] 09/22/2024 8:22 AM EST Scheduled Procedures Name Priority Associated Diagnoses Date/Ti me COLONOSCOPY FLEXIBLE PROXIMAL DIAGNOSTIC Recall History of colon polyps Health Maintenance Due Date Last Done Comments Cologuard 1997 Sigmoidoscopy 1997 Fecal Occult Blood Test 07/12/2001 07/12/2000 Adult Wellness Visit 06/21/2020 06/21/2019 DXA Scan 09/27/2024 09/27/2017 COVID-19 Vaccine ( season) 2024 05/04/2024, 06/08/2023, 11/05/2021, Additional history exists Depression Monitoring 06/19/2025 06/19/2024 TSH 06/19/2025 06/19/2024, [...] Completed 04/27/2024, 06/08/2023, 04/14/2022, Additional history exists HPV (Gardasil) Vaccine Aged Out No lo nger eligible based on patient's age to complete this topic Hepatitis B Vaccine Aged Out No longe r eligible based on patient's age to complete this topic MENINGOCOCCAL (MENACTRA/MENVEO) Aged Out No longer eligible based on patient's age to complete this topic Meningitis B Vaccine (Bexsero/Trumemba) Aged Out No longer eligible based on patient's age to complete this topic documented as of this encounter Medical Devices Implanted Type Area Crop Research Scientist Device Identifier Shelf Expiration Date Model / Serial / Lot Lens Tecnis Toric 15.5d Zct30 - [id number] - [id number] Implanted:Qty: 1 on 10/11/2018 by Mauro Conner MD at OR [facility] Right: Eye [employer] 03/17/2022 [id number] / [id number] / Lens Tecnis Toric 13.5d Zct4 - [id number] - [id number] Implanted:Qty: 1 on 10/18/2018 by Mauro Conner MD at OR [facility] Left: Eye [employer] 12/15/2021 [id number] / [id number] / documented as of this encounter Visit Diagnoses Diagnosis MyCode Research Other*[id number] Screening mammogram for breast cancer documented in this encounter Care Teams Supervisor [employer] Relationship Specialty Start Date End Date Jose Puente MD [address] [place] [address] [place] [phone] PCP - General Family Medicine 08/24/22 documented as of this encounter
--- OUTSIDE RECORDS SUMMARY | 2024-09-27 18:26 | External Medical Summary ---
Author Name Unknown Address Unknown Organization K01:[facility]ORY [facility] [place] - [address] [facility] [address] [facility] [address] Laboratory Report Ordering Provider Test Date Status SAVITA RUIZGisele 09/22/2024 08:22:05 Carmenza l Observation Date Value Abnormality Reference (Units ) Status HbA1C 09/22/2024 08:22:05 5.8 Above high normal 4. 0-5.6 (%) Final The use of HbA1c to monitor glycemic status is based on normal hemoglobin and HbA composition. This test should not be used in patients with abnormal hemoglobin that affects the half life of the red blood cell or the in vivo glycation rates. Glucose, estimated average 09/22/2024 08:22:05 120 <126 (mg/dL) Final Performing Location LABORATORY [facility] - [address] [place] [address]
--- OUTSIDE RECORDS SUMMARY | 2024-09-27 18:26 | External Medical Summary | Summary of Care ---
Author Name Unknown Organization [facility] Address [address] [facility] [place] [address] Phone [phone] Care Team Providers Care Title Insurance Agent Name Role Phone Jose Puente MD Primary Care Provide r Reason for Visit * Reason Comments pre-op exam Encounter Details Date Type Department Care Team (Late st Contact Info) Description 09/22/2024 8:00 AM EST Office Visit Family Medicine [address] [place] [phone] Jose Puente MD [address] [place] [address] [place] [phone] Preoperative general physical examination*; HTN, goal below 140/90; Dyslipidemia, goal LDL below 130; Prediabetes Allergies Active Allergy Reactions Criticality Noted Date [...] Need DANYA eval. w/early dementia 2021. 06/10/17 [facility] COlonoscopy 2 polyps-tubular adenoma. Christianne 7y Summer 2015 fatigue started synthroid 03/2016 25g doing well Depression with anxiety 03/06/2015 Dyslipidemia, [...] 12/05/2018 03/11/2020 Overview (11/25/2020): DO NOT DELETE [facility] DETECT Study: Project # [id number], Signal And Communications Maintainer: Akash Morris, PhD. SUMMARY: Goal: Establish test [...] contact study staff at ; after hours Signal And Communications Maintainer via the [facility] laundry equipment operator . Please contact study team before resolving/deleting from patients problem list. Study phone number: [phone]. Diagnosis changed due to Research Module. Go to Snapshot for study details. Encounter for examination fo r normal comparison and control in clinical research program 12/05/2018 04/09/2022 Overview (11/25/2020): DO NOT DELETE - [facility] Study: Project # [id number], Signal And Communications Maintainer: Kapil Holcomb, MS, MPH. SUMMARY: Goal: Establish [...] contact study staff at ; after hours Signal And Communications Maintainer via the [facility] laundry equipment operator . - Please contact study team before resolving/deleting from patients problem list. Study phone number: [phone]. Diagnosis changed due to Research Module. 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 Not on file Not on file documented as of this encounter Last Filed Vital Signs Vital Sign Reading Time Taken Comments Blood Pressure 136/88 09/22/2024 7:52 AM EST Pulse 85 09/22/2024 7:52 AM EST Temperature 36.8 C (98.3 F) 09/22/2024 7:52 AM ES T Respiratory Rate - - Oxygen Saturation 95% 09/22/2024 7:52 AM EST Inhaled Oxygen Concentration - - Weight 107.9 kg (237 lb 12.8 oz) 09/22/2024 7:52 AM EST Height - - Body Mass Index 46.44 11/22/2023 7:27 AM EDT documented in this encounter Progress Notes * Jose Puente MD - 09/22/2024 8:07 AM EST Subjective: HPI: Lashae Navas is a 74 year old female with hx of HTN, HLD, Prediabetes, hypothyroidism, Depression/anxiety, R TKA (~2014), Asthma seen for Pre-op clearance - procedure/ surgeon/ date: L TKA / Dr. Berg / 09/27/24 - Hx of ME or CVA: Denied - Prior hx of surgery: R shoulder surgery ----- Any complication from General anesthesia: No - chest pain/ shortness of breath with exertion: Denied - new fevers, chills, cough, signs of infection: denied - on anticoagulation: No - Currently smoking: No Had labs with UOC - normal Cr and Hgb Patient Active Problem List Diagnosis Other allergic rhinitis HTN, goal below 140/90 Left knee DJD Dyslipidemia, goal LDL below 130 Depression with anxiety Well adult exam Morbid obesity due to excess calories ([facility]) B12 deficiency Gastroesophageal reflux disease with esophagitis Body mass index (BMI) of 45.0 to 49.9 in adult ([facility]) History of 2019 novel coronavirus disease (COVID-19) Current Outpatient Medications Medication Sig Dispense Refill [...] DIAGNOSTIC performed by Julius Montano MD at [facility] COLONOSCOPY, DIAGNOSTIC (RECTUM) 06/10/2017 adenomatous & hyperplastic polyps, repeat 5 yrs/[facility] COLONOSCOPY, DIAGNOSTIC (RECTUM) 09/09/2022 serrated adenomatous polyp, repeat 5 yrs / [facility] CYSTOSCOPY 2002 Dr Reilly MISCELLANEOUS ORDER appendectomy 1987 REMOVE CATARACT, INSERT LENS PROSTH Right 10/11/2018 right EXTRACAPSULAR CATARACT REMOVAL WITH INTRAOCULAR LENS performed by Mauro Conner MD at OR [facility] REMOVE CATARACT, INSERT LENS PROSTH Left 10/18/2018 left EXTRACAPSULAR CATARACT REMOVAL WITH INTRAOCULAR LENS performed by Mauro Conner MD at OR [facility] TOTAL ABD HYSTERECTOMY W/WO REMOVAL OF TUBE(S) 1987/heavy bleeding Review of patient's allergies indicates: Allergen [...] Hx Daughter Rosario Breast Cancer Aunt (Maternal) Social History Tobacco Use Smoking status: Never Smokeless tobacco: Never Substance Use Topics Alcohol use: Yes Comment: on occasion Vaping/E-Cigarette Use Vaping/E-Cigarette Substances Vaping/E-Cigarette Devices ROS: -Per HPI OBJECTIVE: BP 136/88 | Pulse 85 | Temp 98.3 F (36.8 C) | Wt 237 lb 12.8 oz (107.9 kg) | SpO2 95% | BMI 46.44 kg/m | BSA 2.14 m PHYSICAL EXAM: Vitals are reviewed General:. NAD, well developed HEENT:. Normal Conjunctiva, EOMI Cardiac:. Normal S1, S2, no murmur Lungs:. CTA, no wheezing or crackles Abd:. soft, ND, NT MSK:. Normal gait Psych:. AAOx3, normal affect ASSESSMENT/PLAN: Revised cardiac index of zero VSS and Normal PE Pt's chronic conditions are stable Pt is at acceptable risk for surgery Preoperative general physical examination (Primary) HTN, goal below 140/90 Dyslipidemia, goal LDL below 130 - LIPID PANEL WITHOUT DIRECT LDL Prediabetes - HEMOGLOBIN A1C Jose Puente MD Family medicine[address] [address] documented in this encounter Nursing Notes * Teresa Garg CMA - 09/22/2024 7:50 AM EST She is here today for her pre op for her TKA on 09/27/2024. documented in this encounter Plan of Treatment Upcoming Encounters Date Type Department Care Team (Late st Contact Info) Description 12/18/2024 10:20 AM EDT [address] [phone] Sharron Berumen CRNP [address] [place] [address] [place] [address] 06/19/2025 11:00 AM EST Office Visit Family Medicine [address] [place] [phone] Jose Puente MD [address] [place] [address] [place] [address] 07/12/2025 10:00 AM EST Imaging Radiology [address] [place] [address] Pending Results Name Type Priority Associated Diagnoses Date /Time HEMOGLOBIN A1C Lab Routine Prediabetes 09/22/2024 8:22 AM EST LIPID PANEL WITHOUT DIRECT LDL Lab Routine Dyslipidemia, goal LDL below 130 09/22/2024 8:22 AM EST Scheduled Procedures Name [...] this encounter Medical Devices Implanted Type Area Oil Refinery Operator Device Identifier Shelf Expiration Date Model / Serial / Lot Lens Maksim Zhang 15.5d Zct30 - [id number] - [id number] Implanted:Qty: 1 on 10/11/2018 by Mauro Conner MD at OR [facility] Right: Eye [employer] : [employer] 03/17/2022 [id number] / [id number] / Lens Tecnis Toric 13.5d Zct4 - [id number] - [id number] Implanted:Qty: 1 on 10/18/2018 by Mauro Conner MD at OR [facility] Left: Eye [employer] : [employer] 12/15/2021 [id number] / [id number] / documented as of this encounter Visit Diagnoses Diagnosis Preoperative general physical examination- Primary Other specified pre-operative examination HTN, goal below 140/90 Unspecified essential hypertension Dyslipidemia, goal LDL below 130 Other and unspecified hyperlipidemia Prediabetes Other abnormal glucose Screening mammogram for breast cancer documented in this encounter Care Teams Title Insurance Agent Relationship Specialty Start Date End Date Jose Puente MD [address] [place] [address] [place] [phone] PCP - General Family Medicine 08/24/22 documented as of this encounter"
--- OUTSIDE RECORDS SUMMARY | 2024-09-27 18:26 | External Medical Summary ---
Author Name Unknown Address Unknown Organization K[facility] [address] [place] [address] Laboratory Report Ordering Provider Test Date Status KATI PURDY 09/22/2024 08:22:05 Final Observation Date Value Abnormality Reference (Units ) Status MYCODE SPECIMEN-SST 09/22/2024 08:22:05 Freezing of extracted DNA, whole blood and/or serum. Final Performing Location [facility] [address] [place] [address]
--- OUTSIDE RECORDS SUMMARY | 2024-09-27 18:26 | External Medical Summary ---
Author Name Unknown Address Unknown Organization [facility] [address] [place] [address] Laboratory Report Ordering Provider Test Date Status KATI PURDY 09/22/2024 08:22:05 Final Observation Date Value Abnormality Reference (Units ) Status MYCODE SPECIMEN-SST 09/22/2024 08:22:05 Freezing of extracted DNA, whole blood and/or serum. Final Performing Location [facility] - [address] [place] [address]
--- OUTSIDE RECORDS SUMMARY | 2024-09-27 18:26 | External Medical Summary | Summary of Care ---
Author Name Unknown Organization [facility] Address [address] [facility] [place] [address] Phone [phone] Care Team Providers Care Graphic Design Specialist Name Role Phone Jose Galo MD Primary Care Provide r Reason for Visit * Reason Comments eRx-Medication Refill Encounter Details Date Type Department Care Team (Late st Contact Info) Description 09/14/2024 Refill Family Medicine [address] [place] [phone] Jose Galo MD [address] [place] [address] [place] [phone] Arthralgia, unspecified joint; Depression with anxiety Allergies Active Allergy Reactions Criticality Noted Date [...] Active Fluticasone Propionate 50 MCG/ACT Nasal Suspension (Flonase)Indicati ons:Other allergic rhinitis Administer 2 Sprays into each nostril in the morning. 48 g 1 02/27/20 23 Active Albuterol Sulfate HFA 108 (90 Base) MCG/ACT Inhalation Aerosol SolutionIndicatio ns:Exacerbation of asthma, unspecified asthma severity, unspecified whether persistent Inhale 2 Puffs by mouth every 4 hours as needed for Wheezing. 18 g 5 11/09/19 24 Active Multivitamin Adult Oral Tablet Take by mouth. 11/22/19 24 Active Losartan Potassium 100 MG Oral Tablet (Cozaar)Indicatio ns:Secondary hypertension with goal blood pressure less than 140/90 TAKE 1 TABLET EVERY MORNING 90 Tablet 3 11/24/19 24 Active Pantoprazole Sodium 40 MG Oral Tablet Delayed Release (Protonix)Indicat ions:Gastroesopha geal reflux disease with esophagitis TAKE ONE TABLET BY MOUTH EVERY MORNING 30 MINUTES BEFORE BREAKFAST, DO not CRUSH, split OR chew 90 Tablet 1 05/19/20 24 Active Atorvastatin Calcium 20 MG Oral Tablet (Lipitor) TAKE 1 TABLET ONCE DAILY 90 Tablet 1 05/19/20 24 Active hydrOXYzine HCl 10 MG Oral Tablet (Atarax)Indicatio ns:Insomnia, unspecified type,Depression with anxiety Take 1 Tablet by mouth at bedtime as needed for Other (insomnia). 30 Tablet 2 06/19/20 24 Active busPIRone HCl 5 MG Oral Tablet (Buspar)Indicatio ns:Depression with anxiety TAKE ONE TABLET BY MOUTH EVERY MORNING 90 Tablet 08/04/20 24 Active Levothyroxine Sodium 25 MCG Oral Tablet (Levoxyl)Indicati ons:Idiopathic hypothyroidism TAKE 1 TABLET DAILY AT LEAST 30 MINUTES PRIOR TO BREAKFAST OR OTHER MEDICATIONS. 90 Tablet 1 08/18/19 25 Active DULoxetine HCl 30 MG Oral Capsule Delayed Release Particles (Cymbalta)Indicat ions:Arthralgia, unspecified joint,Depression with anxiety Take 1 Capsule by mouth in the morning. Do not cut, crush or chew. 90 Capsule 1 09/15/19 25 Active DULoxetine HCl 30 MG Oral Capsule Delayed Release Particles (Cymbalta)Indicat ions:Arthralgia, unspecified joint,Depression with anxiety Take 1 Capsule by mouth in the morning. Do not cut, crush or chew. 90 Capsule 1 03/20/20 24 2024 Discontinued documented as of this encounter (statuses as [...] Need DANYA eval. w/early dementia 2021. 06/10/17 [facility] COlonoscopy 2 polyps-tubular adenoma. Christianne 7y Summer 2015 fatigue started synthroid 03/2016 [facility] Depression with anxiety 03/06/2015 Dyslipidemia, [...] 12/05/2018 03/11/2020 Overview (11/25/2020): DO NOT DELETE [facility] DET[facility] Study: Project # [id number], Accountant Clerk: Akash Morris, PhD. SUMMARY: Goal: Establish test [...] contact study staff at ; after hours Accountant Clerk via the [facility] hospital blower operator . Please contact study team before resolving/deleting from patients problem list. Study phone number: [phone]. Diagnosis changed due to Research Module. Go to Snapshot for study details. Encounter for examination fo r normal comparison and control in clinical research program 12/05/2018 04/09/2022 Overview (11/25/2020): DO NOT DELETE - [facility] Study: Project # [id number], Accountant Clerk: Kapil Holcomb, MS, MPH. SUMMARY: Goal: Establish [...] contact study staff at ; after hours Accountant Clerk via the [facility] blower operator . - Please contact study team before resolving/deleting from patients problem list. Study phone number: [phone]. Diagnosis changed due to Research Module. 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 Do not cut, crush or chew.Authorizing Provider: Mirella GALO User: ROBYN MOMIN documented in this encounter Plan of Treatment Upcoming Encounters Date Type Department Care Team (Late st Contact Info) Description 09/15/2024 11:45 AM EST Office Visit Cardiology, [facility] [address] [facility] [place] [address] Jessica Cordon, [address] [place] [address] 09/22/2024 8:00 AM EST [address] [phone] Jose Galo MD [address] [place] [address] [place] [address] 12/18/2024 10:20 AM EDT Office [address] [phone] Sharron Berumen CRNP [address] [place] [address] [place] [address] 06/19/2025 11:00 AM EST Office Visit [address] [place] [phone] Jose Galo MD [address] [place] [address] [place] [address] 07/12/2025 10:00 AM EST Imaging Radiology [address] [place] [address] Scheduled Procedures Name Priority Associated Diagnoses Date/Ti [...] this encounter Medical Devices Implanted Type Area Deputy Court Device Identifier Shelf Expiration Date Model / Serial / Lot Lens Maksim Zhang 15.5d Zct30 - [id number] - [id number] Implanted:Qty: 1 on 10/11/2018 by Mauro Conner MD at OR [facility] Right: Eye [employer] : [employer] 03/17/2022 [id number] / [id number] / Lens Tecnis Toric 13.5d Zct4 - [id number] - [id number] Implanted:Qty: 1 on 10/18/2018 by Mauro Conner MD at [facility] Left: Eye [employer] 12/15/2021 [id number] / [id number] / documented as of this encounter Visit Diagnoses Diagnosis Arthralgia, unspecified joint Depression with anxiety Dysthymic disorder Screening mammogram for breast cancer documented in this encounter Care Teams Graphic Design Specialist Relationship Specialty Start Date End Date Jose Galo MD [address] [place] [address] [place] [phone] PCP - General Family Medicine 08/24/22 documented as of this encounter
--- OUTSIDE RECORDS SUMMARY | 2024-09-27 18:26 | External Medical Summary | Summary of Care ---
Author Name Unknown Organization [facility] [address] [facility] [address] Phone [phone] Care Team Providers Care Business Analytics Analyst Name Role Phone Jose Puente MD Primary Care Provide r Encounter Details Date Type Department Care Team (Late st Contact Info) Description 09/06/2024 Result Scan Unspecified Department <No scans attached> Allergies Active Allergy Reactions Criticality Noted Date [...] Need DANYA eval. w/early dementia 2021. 06/10/17 [facility] COlonoscopy 2 polyps-tubular adenoma. Christianne [...] 12/05/2018 03/11/2020 Overview (11/25/2020): DO NOT DELETE [facility] DETECT Study: Project # [id number], Cash Manager: Akash Morris, PhD. SUMMARY: Goal: Establish [...] contact study staff at ; after hours Cash Manager via the [facility] hospital wire mill operator . Please contact study team before resolving/deleting from patients problem list. Study phone number: [phone]. Diagnosis changed due to Research Module. Go to Snapshot for study details. Encounter for examination fo r normal comparison and control in clinical research program 12/05/2018 04/09/2022 Overview (11/25/2020): DO NOT DELETE - [facility] Study: Project # [id number], Cash Manager: Kapil Holcomb, MS, MPH. SUMMARY: Goal: [...] contact study staff at ; after hours Cash Manager via the [facility] hospital wire mill operator . - Please contact study team before resolving/deleting from patients problem list. Study phone number: [phone]. Diagnosis changed due to Research Module. 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 Not on file Not on file documented as of this encounter Plan of Treatment Upcoming Encounters Date Type Department Care Team (Late st Contact Info) Description 09/15/2024 11:45 AM EST Office Visit Cardiology, [facility] [address] [facility] [place] [address] [address] [place] [address] 09/22/2024 8:00 AM EST Office Visit [address] [place] [phone] Jose Puente MD [address] [place] [address] [place] [address] 12/18/2024 10:20 AM EDT Office Visit [address] [place] [phone] Sharron Berumen CRNP [address] [place] [address] [place] [address] 06/19/2025 11:00 AM EST Office Visit [address] [phone] Jose Puente MD [address] [place] [address] [place] [address] 07/12/2025 10:00 AM EST Imaging Radiology [address] [place] [address] Scheduled Procedures Name Priority Associated Diagnoses Date/Ti [...] this encounter Medical Devices Implanted Type Area Tailor Fitter Device Identifier Shelf Expiration Date Model / Serial / Lot Lens Tecnis Toric 15.5d Zct30 - [id number] - [id number] Implanted:Qty: 1 on 10/11/2018 by Mauro Conner MD at OR [facility] Right: Eye [employer] 03/17/2022 [id number] / [id number] / Lens Tecnis Toric 13.5d Zct4 - [id number] - [id number] Implanted:Qty: 1 on 10/18/2018 by Mauro Conner MD at OR [facility] Left: Eye [employer] 12/15/2021 [id number] / [id number] / documented as of this encounter Procedures Procedure Name Priority Date/Time Associated Diagnosis Comments EKG SCANNED RESULT 09/06/2024 documented in this encounter Results * EKG SCANNED RESULT (09/06/2024) 09/06/2024 No Physician Data Unknown EKG Final Result documented in this encounter Care Teams Business Analytics Analyst Relationship Specialty Start Date End Date Jose Puente MD [address] [place] [address] [place] [address] PCP - General Family Medicine 08/24/22 documented as of this encounter
[2024-09-27] MEDS: TRANEXAMIC ACID / 0.7% NACL 1,000 MG/100 ML BAG IV SCH (21:06)
[2024-09-27] MEDS: SENNA 8.6 MG TAB PO SCH (21:14)
[2024-09-27] MEDS: ceFAZolin 2000MG 2,000 MG/15 ML SYR IV SCH (21:14)
[2024-09-27] MEDS: DOCUSATE SODIUM 100 MG CAP PO SCH (21:14)
[2024-09-27] MEDS: FEXOFENADINE HCL 180 MG TAB PO SCH (21:15)
[2024-09-27] MEDS: ASPIRIN 81 MG ECTAB PO SCH (21:15)
[2024-09-27] MEDS: CYANOCOBALAMIN (B-12) 500 MCG TABLET PO SCH (21:15)
[2024-09-27] MEDS: ATORVASTATIN 20 MG TAB PO SCH (21:15)
--- NOTE | 2024-09-27 21:16 | Consultation ---
Date of Consultation September 27, 2024 Assessment & Plan (1) S/P total knee arthroplasty: (2) HTN (hypertension): (3) HLD (hyperlipidemia): (4) Depression with anxiety: (5) Hypothyroidism: HPI, ROS, PE, med rec completed by Sabnia Ramirez PA-C Assessment and plan per Dr. Schafer. See addendum Supervising Physician Co-Signing Physician Notes IM ATTENDING : Patient seen and examined. History obtained from patient and records. Concur with salient points upon review of preceding documentation by Ms. Sabina Ramirez PA-C. I take responsibility for plan of care below. Final Assessment and Recommendations as follows : Osteoarthritis, left knee status post surgery Clinically well Hypertension, stable Hyperlipidemia on statin Rx GERD stable on PPI Hypothyroidism, euthyroid as of recent outpatient TSH prediabetes, outpatient hemoglobin A1c of 5.8 this month Anxiety/mood disorder, stable Hold parameters for neuropsychotropic medications for sedation/confusion DVT prophylaxis. SCDs as per postop orders Thank you very much for this consultation. Dr. Holloway will follow patient's progress. I spent a total of 15 minutes coordinating, documenting, and providing care for this patientexcludingtime spent by another provider/QHP. Text document was generated using [employer] voice recognition software. It may contain grammatical or spelling errors. Kindly contact undersigned for clarification of any documentation item in question. History of Present Illness Requesting Physician: Dr Berg Reason for Consultation: Post op medical management Attending Physician: Ricky Berg MD History of Present Illness Patient is 74-year-old female with PMH HTN, HLD, depression, anxiety, hypothyroidism, obesity seen in medical consultation s/p left TKA today by Dr. Berg. Postop patient reports is doing well. States the sensation is starting to return to lower extremities. Drinking fluids and denies nausea or vomiting. Urinating without difficulty. Last BM last night. Denies fever/chills, diaphoresis, N/V, HANLEY, dizziness, CP, SOB, cough, abdominal pain, extremity edema, rashes, urinary symptoms. Allergies Allergy/AdvReac Type Severity Reaction Status Date / Time clarithromycin Allergy Unknown severe Verified 09/27/24 12:36 headache, rash, and toothache doxycycline Allergy Unknown rash Verified 09/27/24 12:36 Penicillins Allergy Unknown rash Verified 09/27/24 12:36 Sulfa (Sulfonamide Allergy Unknown RASH Verified 09/27/24 12:36 Antibiotics) zinc oxide Allergy Unknown rash Verified 09/27/24 12:36 WOJCIECH Inhibitors AdvReac Unknown headache Verified 09/27/24 12:36 Home Medications Medication Instructions Recorded Confirmed Type albuterol sulfate 90 mcg/actuation 2 puff inhalation Q4H PRN 04/21/18 09/27/24 History aerosol inhaler Shortness Of Breath Or Wheezing atorvastatin 20 mg tablet 20 mg PO QPM 04/21/18 09/27/24 History fluticasone propionate 50 2 spray intranasal QAM PRN Nasal 04/21/18 09/27/24 History mcg/actuation nasal Congestion spray,suspension (Flonase Allergy Relief) levothyroxine 25 mcg tablet 25 mcg PO QAM 04/21/18 09/27/24 History losartan 100 mg tablet 100 mg PO QAM 04/21/18 09/27/24 History cyanocobalamin (vitamin B-12) 500 500 mcg PO QPM 09/03/22 09/27/24 History mcg tablet fexofenadine 180 mg tablet 180 mg PO QPM 09/03/22 09/27/24 History pantoprazole 40 mg tablet,delayed 40 mg PO QAM 09/03/22 09/27/24 History release buspirone 5 mg tablet 5 mg PO QAM 08/23/24 09/27/24 History duloxetine 30 mg capsule,delayed 30 mg PO QAM 08/23/24 09/27/24 History release hydroxyzine HCl 10 mg tablet 10 mg PO HS PRN Sleep 08/23/24 09/27/24 History acetaminophen 500 mg tablet 1,000 mg (2 x 500 mg) PO Q8H #90 09/27/24 Rx (Tylenol Extra Strength) tabs aspirin 81 mg tablet,delayed 81 mg PO BID #60 tabs 09/27/24 Rx release cefadroxil 500 mg capsule 500 mg PO Q12H #28 caps 09/27/24 Rx celecoxib 200 mg capsule (Celebrex) 200 mg PO Q12H #60 caps 09/27/24 Rx oxycodone 5 mg tablet 5 mg PO Q8H PRN pain #20 tabs 09/27/24 Rx Patient History Medical History Prediabetes Osteoarthritis Degenerative disc disease Irregular heartbeat Occasional - patient feels possibly due to stress- had a holter monitor for 14 days in July 2024 -- unsure of findings. Hypothyroidism Depression with anxiety Hx SBO around 2020- resolved - no surgical intervention, hospitalized at [facility] Hyperlipidemia Hypertension History of COVID-2019 > not hospitalized - symptoms fully resolved History of asthma rare res inh use well controlled and stable Sleep apnea in adult no device needed per patient History of esophageal reflux well controlled and stable History of TMJ disorder clicks, and currently getting sore and causing some issues to open her mouth with pain at times --- has not locked. Surgical History (Updated 09/27/24 @ 21:41 by Sabina Ramirez PA-C) History of colonoscopy with polypectomy 06/2017 removed of adenomatous and hyperplastic polyps, repeat 5 years History of appendectomy Removed with NAHUN BSO History of knee replacement procedure of right knee 2014 Dr. Palacio History of total abdominal hysterectomy and bilateral salpingo-oophorectomy S/P NAHUN-BSO S/P appendectomy with hysterectomy surgery History of colonoscopy History of arthroplasty of right knee History of cataract surgery bilat History of repair of rotator cuff right History of tonsillectomy Family History Father Cancer Mother Breast cancer Other No family history of adverse response to anesthesia Social History Smoking Status: Never smoker Second Hand Exposure: No; Do You Dip or Chew Tobacco: No; Tobacco Cessation Education Requested by Patient: No Hx Alcohol Use: Yes Hx Substance Use: No Preferred Language: Yoruba Communication Ability: Effective Childcare Provider Required: No Beliefs That Will Affect Care: None marital status: Current Living Situation: Spouse Other Information That Helps Us Care for You: No Feels Safe at Home: Yes Safety Concerns: Feels Safe At This Time Assistive Devices: Glasses Review of Systems Review of Systems: All systems reviewed & are unremarkable except as noted in HPI & below Physical Exam Physical Exam: General: no distress, obese female Head: normocephalic, atraumatic Eyes: conjunctiva non-injected, anicteric ENT: normal inspection external ears, nose, mucous membranes moist Neck: supple, trachea midline Lungs: clear, no respiratory distress, no wheezing/rhonchi/rales CV: RRR, no murmur, no pretibial edema Abd: normal BS, soft, non-tender Ext: no calf tenderness, RLE + healed surgical scar anterior knee, flexion and extension of knee and ankle intact. LLE: +Surgical dressing and WOJCIECH bandage in place, +hemovac drain in place, pt able to dorsiflex and plantar flex foot, sensation to light touch intact Neuro: A&O x 3, no focal deficits noted, normal affect Skin: warm, dry Results & Data Vital Signs (Past 12 Hours) Vital Signs Temp Pulse Pulse Resp BP BP Pulse Ox 09/27/24 20:36 36.7 C 73 16 118/76 93 09/27/24 19:28 36.5 C 73 16 116/71 93 09/27/24 18:35 36.8 C 79 20 110/63 93 09/27/24 18:06 72 16 113/68 93 09/27/24 17:35 09/27/24 17:35 36.7 C 74 18 127/67 94 09/27/24 17:27 36.5 C 09/27/24 17:05 81 17 129/67 94 09/27/24 16:55 79 18 123/63 94 09/27/24 16:45 36.6 C 83 18 134/58 L 95 09/27/24 12:20 37 C 82 20 160/88 H 97 O2 Del Method 09/27/24 20:36 Room Air 09/27/24 19:28 Room Air 09/27/24 18:35 Room Air 09/27/24 18:06 Room Air 09/27/24 17:35 Room Air 09/27/24 17:35 Room Air 09/27/24 17:27 09/27/24 17:05 Room Air 09/27/24 16:55 Room Air 09/27/24 16:45 Room Air 09/27/24 12:20 Room Air
[2024-09-27] MEDS ORDERED: KETOROLAC TROMETHAMINE 15 MG/ML VIAL IV PRN (22:00)
[2024-09-28] MEDS: oxyCODONE HCL IR 5 MG TAB (IMMEDIATE RELEASE) PO PRN (02:50)
[2024-09-28 05:57] LABS: Hematocrit (blood only) 31.9 % (37.0-47.0); Hemoglobin 10.7 g/dl (12.0-16.0); Mean Corpuscular Hemoglobin 30.9 pg (25.0-34.0); Mean Corpuscular Hgb Conc 33.5 g/dL (32.0-36.0); Mean Corpuscular Volume 92.2 fL (80.0-100.0); Mean Platelet Volume 10.6 fL (9.4-12.4); Platelet Count 207 K/uL (130-400); RDW Coefficient of Variation 12.6 % (11.5-14.5); RDW Standard Deviation 42.6 fL (36.4-46.3); Red Blood Count 3.46 M/uL (4.20-5.40); White Blood Count 13.14 K/ul (4.8-10.8)
[2024-09-28 06:06] LABS: BUN Creatinine Ratio 21.5 (10-20); Calcium 8.4 mg/dl (8.6-10.3); Creatinine Clr Calc Pharmacy 85.2 ml/min; Potassium 4.2 mmol/L (3.5-5.1)
[2024-09-28 07:20] VITALS: BP 145/69; PULSE 75; RESP 20; TEMP 98.1; O2SAT 92
--- NOTE | 2024-09-28 07:47 | Hospitalist Progress Note ---
Date of Service September 28, 2024 Assessment & Plan (1) S/P total knee arthroplasty: (2) HTN (hypertension): (3) HLD (hyperlipidemia): (4) Depression with anxiety: (5) Hypothyroidism: Plan: Osteoarthritis, left total knee replacement: POD#1 s/p left total knee arthroscopy with Dr. Berg. Per ortho for pain control, wound care, anticoagulation and activities. Monitor H&H, Hgb 10.7; baseline 12. Has hemovac with scant drainage continue incentive spirometry, PT/OT when appropriate Pt going to have Home Health PT/OT and then will go to [facility] in [place] x2 weeks for continued PT Pt appears medically stable for DC. Hypertension: chronic; takes losartan; continue Hyperlipidemia: chronic on statin Rx GERD: stable on PPI Hypothyroidism: euthyroid as of recent outpatient TSH prediabetes: outpatient hemoglobin A1c of 5.8 this month Hold parameters for neuropsychotropic medications for sedation/confusion DVT prophylaxis. SCDs as per postop orders I spent a total of 46 minutes coordinating, documenting, and providing care for this patient excluding time spent inthe performance of separately billed services or time spent by another provider/QHP. Admission and Anticipated Discharge Date Admission Date: September 27, 2024 Supervising Physician Co-Signing Physician Notes Pt was seen and examined by myself, Edel Holloway MD on the day of service. Care was coordinated with GUERLINE Carson. 74yoF s/p knee replacement on the left Noting that she was happy to be going home, pain under control at that time. Monitor Hgb postop Close orthopedics followup PRN pain meds Otherwise as above. I spent a total [id number] coordinating, documenting, and providing care for this patient excluding time spent in the performance of separately billed services Subjective Patient sitting in her hospital bed in no apparent distress. She is in very good spirits and denies pain. She has ambulated with PT and has even done stairs. She has tolerated advancing her diet without nausea/vomiting. Pt waiting to work with OT; eager to be discharged home. She has plans to do PT at [facility] in [place]. She lives with her who has dementia. In discussing this, he does not require her to anticipate or meet any of his ADL's. Family will be available to help as well. Pt denies HANLEY, dizziness, SOB, chest pain, palpitations, N/V/D. Ortho placing main discharge. See below for plan of care. Review of Systems Review of Systems: Neuro: (-) Falls, trauma, slurred speech HEENT: (-) HANLEY, dizziness, dysphagia, visual or auditory changes CV: (-) CP, palpitations, swelling Resp: (-) SOB GI: (-) appetite changes, N/V/D, bowel changes : (-) urinary changes Skin: (-) rashes Psych: (-) anxiety, depression Physical Exam Physical Exam: Neuro: AAOx4, PERRLA, no aphagia, memory changes, CNII-XII grossly intact HEENT: head normocephalic, moist mucus membranes CV: S1/S2, (-) M/G/R, (-) edema, cap refill < 3 seconds Resp: Lungs CTA in all wilde. On RA GI: Abdomen S/NT/ND, Ax4 bowel sounds, (-) CVA tenderness Musculoskeletal: 5/5 B/L UE strength, 5/5 LLE strength, 4/5 LLE. Using a walker to ambulate. (-) neuropathy. Skin: (-) rashes , (-) erythema. Psych: euthymic mood Results & Data Results & Data Vital Signs (Past 12 Hours) Vital Signs Temp Pulse Resp BP BP Pulse Ox O2 Del Method 09/28/24 07:19 36.7 C 75 20 145/69 H 92 Room Air 09/28/24 02:49 36.8 C 64 18 107/68 95 Room Air 09/27/24 23:15 36.5 C 73 18 118/75 93 Room Air 09/27/24 20:36 36.7 C 73 16 118/76 93 Room Air Laboratory Results Short CBC 09/28/24 Range/Units 05:33 WBC 13.14 H (4.8-10.8) K/ul Hgb 10.7 L (12.0-16.0) g/dl Hct 31.9 L (37.0-47.0) % Plt Count 207 (130-400) K/uL BMP 09/28/24 05:33 Sodium 137 Potassium 4.2 Chloride 108 H Carbon Dioxide 26 BUN 14 Creatinine 0.65 Glucose 125 H Calcium 8.4 L
--- NOTE | 2024-09-28 07:53 | Orthopedic Progress Note ---
Date of Service September 28, 2024 Assessment & Plan (1) Bilateral primary osteoarthritis of knee: Plan: History of bilateral knee osteoarthritis with total knee replacement right knee in the past 2016. Patient now with progressive osteoarthritis in the left knee and wants proceed with left total knee replacement. Postop day 1 left total knee replacement doing well. Patient would like to set up home physical therapy. If home PT can be set up patient can be discharged home today. Patient's Hemovac drain can be discontinued prior to patient being discharged. Admission and Anticipated Discharge Date Admission Date: September 27, 2024 Subjective Doing very well. Took some pain medicine last night for some pain but pain controlled. Review of Systems Review of Systems: Feels well no chest pain shortness of breath. Physical Exam Musculoskeletal: Neutral alignment left leg. Independent straight leg raise. 0 to 90 degrees range of motion. Normal circulation motor function distally. Dressing dry and intact, yogesh functional. Results & Data Vital Signs (Past 12 Hours) Vital Signs Temp Pulse Resp BP BP Pulse Ox O2 Del Method 09/28/24 07:19 36.7 C 75 20 145/69 H 92 Room Air 09/28/24 02:49 36.8 C 64 18 107/68 95 Room Air 09/27/24 23:15 36.5 C 73 18 118/75 93 Room Air 09/27/24 20:36 36.7 C 73 16 118/76 93 Room Air Diagnostic Findings X-rays demonstrate well aligned total knee replacement cemented implants.
[2024-09-28] MEDS: dexAMETHasone 10 MG in SYRINGE 0 ML IV SCH (08:52)
[2024-09-28] MEDS: MULTIVITAMIN TAB PO SCH (08:53)
[2024-09-28] MEDS: LOSARTAN POTASSIUM 50 MG TAB PO SCH (08:53)
[2024-09-28] MEDS: busPIRone 5 MG TAB PO SCH (08:53)
[2024-09-28] MEDS: DULoxetine HCL 30 MG CAP PO SCH (08:53)
[2024-09-28] MEDS: PANTOprazole 40 MG TAB PO SCH (08:53)
[2024-09-28] MEDS: LEVOTHYROXINE SODIUM 25 MCG TABLET PO SCH (08:54)
--- NOTE | 2024-10-04 14:02 | Discharge Summary ---
Date of Service October 04, 2024 Admission HPI Per Admitting Provider 74-year-old female with chronic left knee pain failed conservative management. Patient has end-stage osteoarthritis left knee and wants proceed with knee replacement. History of right knee replacement 2016. Patient denies headaches, sweats, fevers, chills, double vision, blurred vision, , sore throat, dysphagia, chest pain, sob, wheezing, n/v/d/c, fatigue, urinary symptoms. ROS positive for chronic cough, depression with anxiety, extremity numbness, shortness of breath with activity walking up a hill or running short distance, TMJ, low back pain, acid reflux hiatal hernia. Principal Diagnosis Left knee osteoarthritis Discharge Exam Constitutional WD/WN, vitals as above no acute distress Musculoskeletal Knee: + surgical incision (Left knee dressing C/D/I); no skin erythema and no ecchymosis Neurologic normal touch/pain/proprioception Psychiatric A+Ox3, euthymic affect Speech: normal rate/rhythm/volume of speech Discharge Data Allergies Allergy/AdvReac Type Severity Reaction Status Date / Time clarithromycin Allergy Unknown severe Verified 09/27/24 12:36 headache, rash, and toothache doxycycline Allergy Unknown rash Verified 09/27/24 12:36 Penicillins Allergy Unknown rash Verified 09/27/24 12:36 Sulfa (Sulfonamide Allergy Unknown RASH Verified 09/27/24 12:36 Antibiotics) zinc oxide Allergy Unknown rash Verified 09/27/24 12:36 WOJCIECH Inhibitors AdvReac Unknown headache Verified 09/27/24 12:36 Consultations 09/27/24 19:25 Consult Hospitalist Routine Procedures Performed Operation Date: 09/27/24 15:10 Actual Procedures p Left Total Knee Arthroplasty(Left) - Ricky Berg MD Ordered Studies 09/27/24 05:00 US - OR guided needle placemen Routine Hospital Course (1) Bilateral primary osteoarthritis of knee: History of bilateral knee osteoarthritis with total knee replacement right knee in the past 2016. Patient now with progressive osteoarthritis in the left knee and wants proceed with left total knee replacement. Postop day 1 left total knee replacement doing well. Patient would like to set up home physical therapy. If home PT can be set up patient can be discharged home today. Patient's Hemovac drain can be discontinued prior to patient being discharged. Total Time Total Time Spent Total Time Spent (In Minutes): 20 Discharge Plan Discharge Items Patient Disposition: Home - Home Health Services Reason For Visit: Left Knee Osteoarthritis Discharge Diagnosis: Left knee osteoarthritis Activity: Per Instructions section Non-emergency contact: Primary Care Provider Call non-emergency contact if: you have any medication questions, your pain is not controlled, you have a fever, your temperature is above 101.5, your wound has increased redness and your wound has increased drainage Follow-up/Referrals: Janes Martínez MD [Outside Practitioners] - (Date & Time 10/05/2024 1:40 PM Provider: Jose uPente MD [facility] ) Diet: Regular Ambulatory Orders: Prothrombin Time INR (Routine) Timeframe: 20240906 Location: Determined by Patient Ordered By: Mohini Cutler Partial Thromboplastin Time (Routine) Timeframe: 20240906 Location: Determined by Patient Ordered By: Mohini Cutler Addtl Attending Provider Instructions: ACTIVITY RECOMMENDATIONS: SELF CARE INSTRUCTIONS AFTER TOTAL KNEE REPLACEMENT A. You may need to continue a physical therapy program after discharge from the hospital. There are several options available to you. Your doctor will assist you in selecting the best one for you. 1. An out-patient facility 3 times a week for therapy. 2. Home therapy for 1 to 2 weeks with outpatient therapy to follow. 3. Continue working on all exercises taught by physical therapy three times a day for 20 minutes on non-therapy days. Your goals should be to increase the bending of your knee to 90 degrees and beyond and to fully straighten your knee. Ice and elevate knee after exercise. B. Weight as tolerated with a walker or as instructed by your physician. C. It is okay to shower if minimal to no drainage from incision. No Baths. Do not soak wound. D. Make walking a part of your daily routine. Be up as much as comfortable with rest periods throughout the day. Rest with leg elevation is very important. Use the ice wrap frequently for the first 3-4 weeks. E. There are no restrictions on activities. You may ride in a car, shop, par ticipate in wet inspector optical glass and all social activities. F. Wear the long elastic stockings (JOSE JUAN hose) 20 hours a day for one month after surgery. They can be removed several times a day for laundering and when showering. G. You may return to previous diet. H. NICOLAS dressing: You have a NICOLAS dressing on your surgical wound. It will remain in place for 7 days from surgery. You will be provided with a booklet with the do's and don'ts with the dressing in place. After 7 days, the dressing may be removed. If there is drainage from the surgical incision, you may cover the wound with dry dressings SPECIAL CARE INSTRUCTIONS: VERY IMPORTANT TO READ AND REVIEW A. Take Coumadin, Xarelto, Aspirin or Lovenox (blood thinning medications) as directed by your doctor. If on Coumadin, have a pro-time (blood test) drawn according to your doctor's instructions. This will tell the doctor how well the Coumadin is thinning your blood. B. There are a few signs you need to watch for after you are home. Call [facility] if you notice any of the followin. Increased severe knee pain. Some pain is expected especially when you exercise. 2. Increased swelling in your leg or knee; pain or swelling of the calf muscle in either lower leg. 3. Any redness or fluid drainage from the incision. 4. Shortness of breath or chest pain. 5. A Temperature of 101 degrees F or greater. C. Please call [facility] at if you have any concerns or questions about your operation or recovery. The doctor or his nurse will return your call promptly. D. You must take antibiotics before dental work, bladder, bowel or other surger y. Your doctor will provide you with a permanent care to carry describing this precaution. FOLLOW UP VISIT: If appointment is not already scheduled: Please call [facility] to make a follow-up appointment for 2 weeks after your surgery at . Pending Studies at Discharge: No Stand-Alone Forms: My [facility], Pain - Opioid Pain Management, Smoking Cessation Medications and DC Order Prescriptions: New celecoxib [Celebrex] 200 mg capsule 200 mg PO Q12H Qty: 60 0RF aspirin 81 mg tablet,delayed release (DR/EC) 81 mg PO BID Qty: 60 0RF cefadroxil 500 mg capsule 500 mg PO Q12H Qty: 28 0RF oxycodone 5 mg tablet 5 mg PO Q8H PRN (Reason: pain) Qty: 20 0RF acetaminophen [Tylenol Extra Strength] 500 mg tablet 1,000 mg PO Q8H Qty: 90 0RF Continued atorvastatin 20 mg tablet 20 mg PO QPM levothyroxine 25 mcg tablet 25 mcg PO QAM albuterol sulfate 90 mcg/actuation HFA aerosol inhaler 2 puff Inhalation Q4H PRN (Reason: Shortness Of Breath Or Wheezing) losartan 100 mg tablet 100 mg PO QAM fluticasone propionate [Flonase Allergy Relief] 50 mcg/actuation [place],Suspension 2 spray INTRANASAL QAM PRN (Reason: Nasal Congestion) fexofenadine 180 mg Tablet 180 mg PO QPM cyanocobalamin (vitamin B-12) 500 mcg Tablet 500 mcg PO QPM pantoprazole 40 mg Tablet,Delayed Release (Dr/Ec) 40 mg PO QAM buspirone 5 mg Tablet 5 mg PO QAM hydroxyzine HCl 10 mg Tablet 10 mg PO HS PRN (Reason: Sleep) duloxetine 30 mg Capsule,Delayed Release(Dr/Ec) 30 mg PO QAM Kraconnor/Other Patient Handouts: DVT Post Op Prevention, Tips After Knee Surgery, Knee Replacement Total Dc Admission Data Admit Date/Time: 09/27/24 13:55 Attending Provider: Ricky Berg Admit Provider: Ricky Berg Primary Care Provider: Jose Puente Other Providers: Edel Holloway; Charito Savage [facility] Other Interventions: Discharge Summary Assessment (RN) Last Done: 09/28/24 09:59
== END 2024-09-28 12:43 | disposition home health service (06) ==
LOC: ASU 11:49 → 3E 11:49
DX: I10 Essential (primary) hypertension; E66.01 Morbid (severe) obesity due to excess calories; G47.33 Obstructive sleep apnea (adult) (pediatric); Z68.41 Body mass index [BMI] 40.0-44.9, adult; Z88.0 Allergy status to penicillin; Z79.899 Other long term (current) drug therapy; J45.909 Unspecified asthma, uncomplicated; R00.2 Palpitations; Z88.8 Allergy status to other drugs, medicaments and biological substances; Z79.890 Hormone replacement therapy; M17.0 Bilateral primary osteoarthritis of knee